=== PATIENT | male | born 1930 | race African-American/Black ===

== ENCOUNTER 2018-05-15 16:25 | Inpatient (IN) | payer MEDICARE, MEDICAID ==
[2018-05-15] MEDS ORDERED: Sodium Chloride 0.9% 1,000 ML IV ONE (16:57)
[2018-05-15 18:09] LABS: % BASOPHILS 0.8 % (0.0-2.0); % EOSINOPHILS 1.4 % (0.0-5.0); % LYMPHOCYTES 18.6 % (20.0-50.0); % MONOCYTES 13.2 % (2.0-10.0); BASOPHILE ABSOLUTE 0.1 Th/cumm (0-0.2); EOSINOPHILE ABSOLUTE 0.1 Th/cmm (0.1-0.4); HEMATOCRIT 34.3 % (41.0-60); HEMOGLOBIN 11.1 gm/dL (12-16); LYMPHOCYTE ABSOLUTE 1.2 Th/cmm (1.5-3.0); MEAN CELL VOLUME 76.8 fl (80-99); MEAN CORPUSCULAR HEMOGLOBIN 24.8 pg (27.0-31.0); MEAN CORPUSCULAR HGB CONC 32.3 pg (28.0-36.0); MEAN PLATELET VOLUME 8.1 fl; MONOCYTE ABSOLUTE 0.9 Th/cmm (0.3-1.0); NEUTROPHILE ABSOLUTE 4.2 Th/cmm (1.8-8.0); PLATELET COUNT 365 Th/cmm (150-400); RED BLOOD COUNT 4.46 Mil/cmm (3.80-5.80); RED CELL DISTRIBUTION WIDTH 16.7 % (11.5-20.0); WHITE BLOOD COUNT 6.5 Th/cmm (4.8-10.8)
[2018-05-15 18:16] LABS: ALB/GLOB RATIO 0.8 (1.0-1.8); ALBUMIN 3.4 gm/dL (4.2-5.5); ALKALINE PHOSPHATASE 154 U/L (34-104); AMYLASE SERUM 79 U/L (29-103); ANION GAP 15.4 (7.0-16.0); BILIRUBIN,TOTAL 0.3 mg/dL (0.3-1.0); BUN - UREA NITROGEN 25 mg/dL (7-25); CALCIUM SERUM 8.9 mg/dL (8.6-10.3); CARBON DIOXIDE 21.7 mEq/L (21.0-31.0); CHLORIDE 102 mEq/L (98-107); CREATININE KINASE 82 U/L (30-223); GLUCOSE 102 mg/dL (70-105); LIPASE 27 U/L (11-82); POTASSIUM SERUM 4.1 mEq/L (3.5-5.1); SGOT 10 U/L (13-39); SGPT/ALT 8 U/L (7-52); SODIUM SERUM 135 mEq/L (136-145); TOTAL PROTEIN,SERUM 7.5 gm/dL (6.0-8.3)
[2018-05-15 18:17] LABS: TROP I 0.01 ng/mL (0.01-0.05)
[2018-05-15 18:21] LABS: INR 1.17 (0.5-1.4); PROTHROMBIN TIME (TEST) 12.1 SECONDS (9.5-11.5)
--- NOTE | 2018-05-15 18:41 | ED Physician Chart ---
ED Chief Complaint/HPI - Patient Information Date Seen:: 05/15/18 Time Seen:: 17:25 Chief Complaint:: Poor Appetite History of Present Illness:: onset x 2 days of poor appetite, weakness, and dizziness; no report of trauma, H /As, neck pain, cough, C/P, SOB, Abd. Pain, N/V/D/C, chills, or urinary s/s Allergies:: Allergies Allergy/AdvReac Type Severity Reaction Status Date / Time No Known Allergies Allergy Verified 05/15/18 17:06 Vitals:: Vital Signs - 8 hr 05/15/18 17:22 Temp 97.9 F HR 64 RR 18 BP 132/71 O2 Sat % 100 Historian:: Patient, EMS Review:: Nurse's Note Reviewed, Old Chart Reviewed, EMS run form Reviewed ED Review of Systems - Review of Systems General/Constitutional: No fever, No chills, No weight loss, Weakness, No diaphoresis, No edema, No loss of appetite Skin: No skin lesions, No rash, No bruising Head: No headache, No light-headedness Eyes: No loss of vision, No pain, No diplopia ENT: No earache, No nasal drainage, No sore throat, No tinnitus Neck: No neck pain, No swelling, No thyromegaly, No stiffness, No mass noted Cardio Vascular: No chest pain, No palpitations, No PND, No orthopnea, No edema Pulmonary: No SOB, No cough, No sputum, No wheezing GI: No nausea, No vomiting, No diarrhea, No pain, No melena, No hematochezia, No constipation, No hematemesis G/U: No dysuria, No frequency, No hematuria, No nacturia Musculoskeletal: No bone or joint pain, No back pain, No muscle pain Endocrine: No polyuria, No polydipsia Psychiatric: No prior psych history, No depression, No anxiety, No suicidal ideation, No homicidal ideation, No auditory hallucination, No visual hallucination Hematopoietic: No bruising, No lymphadenopathy Allergic/Immuno: No urticaria, No angioedema Neurological: No syncope, No focal symptoms, Weakness, No paresthesia, No headache, No seizure, Dizziness, No confusion, Vertigo ED Past Medical History - Past Medical History Obtainable: Yes Past Medical History: HTN, Dyslipidemia Family History: HTN Social History: Non Smoker, No Alcohol, No Drug Use, , Care Facility Surgical History: None Psychiatricy History: None Medication: Reviewed Family Medical History - Family Member Mother History Unknown: Yes ED Physical Exam - Physical Examination General/Constitutional: Awake, Well-developed, well-nourished, Alert, No distress, GCS 15, Non-toxic appearing, Ambulatory Head: Atraumatic Eyes: Lids, conjuctiva normal, PERRL, EOMI Skin: Nl inspection, No rash, No skin lesions, No ecchymosis, Well hydrated, No lymphadenopathy ENMT: External ears, nose nl, TM canals nl, Nasal exam nl, Lips, teeth, gums nl , Oropharynx nl, Tonsils nl Neck: Nontender, Full ROM w/o pain, No JVD, No nuchal rigidity, No bruit, No mass, No stridor Respiratory: Nl effort/Exclusion, Clear to Auscultation, No Wheeze/Rhonchi/Rales Cardio Vascular: No murmur, gallop, rubs, NL S1 S2, Carotid/Femoral/Distal pulses equal bilaterally Other Cardio Vascular comments:: Irregular Irregular Rhythm GI: No tenderness/rebounding/guarding, No organomegaly, No hernia, Normal BS's, Nondistended, No mass/bruits, No McBurney tenderness, Rectum exam nl Other GI comments:: no pulsatile masses : No CVA tenderness Extremities: No tenderness or effusion, Full ROM, normal strength in all extremities, No edema, Normal digits & nails Neuro/Psych: Alert/oriented, DTR's symmetric, Normal sensory exam, Normal motor strength, Judgement/insight normal, Mood normal, Normal gait, No focal deficits Misc: Normal back, No paraspinal tenderness ED Labs/Radiology/EKG Results - Lab Results Results: Laboratory Tests 05/15/18 05/15/18 05/15/18 17:30 17:30 17:30 WBC 6.5 RBC 4.46 Hgb 11.1 L Hct 34.3 L MCV 76.8 L MCH 24.8 L MCHC Differential 32.3 RDW 16.7 Plt Count 365 MPV 8.1 Neutrophils % 66.0 Lymphocytes % 18.6 L Monocytes % 13.2 H Eosinophils % 1.4 Basophils % 0.8 PT 12.1 H INR 1.17 PTT (Actin FS) 28.3 Sodium 135 L Potassium 4.1 Chloride 102 Carbon Dioxide 21.7 Anion Gap 15.4 BUN 25 Creatinine 1.0 Est GFR ( Amer) TNP Est GFR (Non-Af Amer) TNP BUN/Creatinine Ratio 25.0 Glucose 102 Whole Bld Lactic Acid Calcium 8.9 Total Bilirubin 0.3 AST 10 L ALT 8 Alkaline Phosphatase 154 H Creatine Kinase 82 Troponin I Total Protein 7.5 Albumin 3.4 L Globulin 4.1 Albumin/Globulin Ratio 0.8 L Amylase 79 Lipase 27 05/15/18 17:30 WBC RBC Hgb Hct MCV MCH MCHC Differential RDW Plt Count MPV Neutrophils % Lymphocytes % Monocytes % Eosinophils % Basophils % PT INR PTT (Actin FS) Sodium Potassium Chloride Carbon Dioxide Anion Gap BUN Creatinine Est GFR ( Amer) Est GFR (Non-Af Amer) BUN/Creatinine Ratio Glucose Whole Bld Lactic Acid 3.26 H* Calcium Total Bilirubin AST ALT Alkaline Phosphatase Creatine Kinase Troponin I 0.01 Total Protein Albumin Globulin Albumin/Globulin Ratio Amylase Lipase Comments:: Reviewed - Radiology Results Comments:: NAD - EKG Interpretations EKG Time:: 17:40 Rate & Rhythm: 134; Atrial Fibrillation Comments:: non-specific st-t changes ED Septic Shock - . Is Septic Shock (SBP<90, OR Lactate>4 mmol\L) present?: No - <6hrs of presentation: Vital Signs: Vital Signs - 8 hr 05/15/18 17:22 Temp 97.9 F HR 64 RR 18 BP 132/71 O2 Sat % 100 ED Reassessment (Disposition) - Reassessment Reassessment Condition:: Improved - Diagnosis Diagnosis:: Atrial Fibrillation; Cardiac Arrythmias; Tachyarrythmias; Anemia; Dehydration; Lactic Acidosis; Hyponatremia; Hematuria; UTI - Aftercare/Follow up Instructions Aftercare/Follow-Up Instructions:: Counseled pt regarding lab results/diagnosis & need follow up, Counseled pt & family regarding lab results/diagnosis & need follow up - Patient Disposition Discharge/Transfer:: Acute Care w/in this hosp Accepting Physician:: Dr. Martinez Time Called:: 1899 Time Responded:: 19:00 Admitted to:: Telemetry Spoke to:: Dr. Martinez Admitting Medical Physician:: Dr. Martinez Condition at Disposition:: Stable, Improved
[2018-05-15 19:29] LABS: URINE SOURCE MIDSTREAM
[2018-05-15 19:47] LABS: URINE BILIRUBIN NEGATIVE (NEGATIVE); URINE BLOOD LARGE (NEGATIVE); URINE GLUCOSE (UA) NEGATIVE (NEGATIVE); URINE KETONE NEGATIVE (NEGATIVE); URINE LEUKOCYTE ESTERASE MODERATE (NEGATIVE); URINE MICROSCOPIC INDICATED? YES; URINE NITRATE POSITIVE (NEGATIVE); URINE PH 6.5 (4.6 - 8.0); URINE PROTEIN 30 mg/dL (NEGATIVE)
[2018-05-15 19:49] LABS: URINE CLARITY HAZY (CLEAR); URINE COLOR YELLOW
[2018-05-15 19:51] LABS: URINE RBC >100 /hpf (0-5)
[2018-05-15 19:53] LABS: URINE BACTERIA 4+ /hpf (NONE SEEN); URINE EPITHELIAL CELLS FEW /lpf (FEW)
[2018-05-15] MEDS ORDERED: cefTRIAXone 1 GM in Sodium Chloride 0.9% 50 ML IV ONE (19:58)
[2018-05-15] MEDS ORDERED: Non-Formulary Item 1 EA (Omeprazole [Omeprazole] 40 MG) PO SCH (23:30)
[2018-05-16 00:10] VITALS: BP 148/88
--- NOTE | 2018-05-16 08:33 | Diagnostic Imaging Report ---
Portable chest x-ray HISTORY: Pain The heart appears enlarged. Atherosclerotic calcination seen in the aorta. No acute focal prominent processes. IMPRESSION: 1. No acute focal pulmonary processes 2. Cardiomegaly with atherosclerotic vascular changes
[2018-05-16] MEDS: Multivitamin w/ Minerals Tab PO SCH (08:55)
[2018-05-16] MEDS: cefTRIAXone 1 GM in Sodium Chloride 0.9% 50 ML IV SCH (20:03)
[2018-05-17 06:10] LABS: % BASOPHILS 0.7 % (0.0-2.0); % EOSINOPHILS 1.9 % (0.0-5.0); % LYMPHOCYTES 21.9 % (20.0-50.0); % MONOCYTES 9.7 % (2.0-10.0); % NEUTROPHILS 65.8 % (40.0-80.0); EOSINOPHILE ABSOLUTE 0.1 Th/cmm (0.1-0.4); HEMATOCRIT 33.3 % (41.0-60); HEMOGLOBIN 10.7 gm/dL (12-16); LYMPHOCYTE ABSOLUTE 1.3 Th/cmm (1.5-3.0); MEAN CELL VOLUME 76.1 fl (80-99); MEAN CORPUSCULAR HEMOGLOBIN 24.3 pg (27.0-31.0); MEAN PLATELET VOLUME 8.4 fl; MONOCYTE ABSOLUTE 0.6 Th/cmm (0.3-1.0); NEUTROPHILE ABSOLUTE 4.1 Th/cmm (1.8-8.0); PLATELET COUNT 404 Th/cmm (150-400); RED BLOOD COUNT 4.38 Mil/cmm (3.80-5.80); RED CELL DISTRIBUTION WIDTH 17.5 % (11.5-20.0); WHITE BLOOD COUNT 6.1 Th/cmm (4.8-10.8)
[2018-05-17 06:59] LABS: ALB/GLOB RATIO 0.9 (1.0-1.8); ALBUMIN 3.3 gm/dL (4.2-5.5); ALKALINE PHOSPHATASE 139 U/L (34-104); ANION GAP 12.6 (7.0-16.0); BILIRUBIN,TOTAL 0.3 mg/dL (0.3-1.0); BUN - UREA NITROGEN 25 mg/dL (7-25); CALCIUM SERUM 8.8 mg/dL (8.6-10.3); CARBON DIOXIDE 24.4 mEq/L (21.0-31.0); CHLORIDE 107 mEq/L (98-107); CREATININE - SERUM 1.2 mg/dL (0.7-1.3); GLUCOSE 82 mg/dL (70-105); SGOT 9 U/L (13-39); SGPT/ALT 7 U/L (7-52); SODIUM SERUM 140 mEq/L (136-145); TOTAL PROTEIN,SERUM 6.9 gm/dL (6.0-8.3)
[2018-05-17] MEDS: Multivitamin w/ Minerals Tab PO SCH (08:55)
[2018-05-17] MEDS ORDERED: Probiotic Screen MC PRN (12:14)
--- NOTE | 2018-05-17 19:28 | History & Physical ---
ADMIT DATE: 05/16/2018 CHIEF COMPLAINT: Increasing confusions and lethargy. HISTORY OF PRESENT ILLNESS: An 87-year-old male with underlying history of dementia, dysphagia, congestive heart failure, hypertension, BPH, who lives at retirement facility, was brought to the Emergency Department for evaluation of increasing confusion, lethargic. The patient was diagnosed with complicated UTI system without treatment. PAST MEDICAL HISTORY: As per HPI. PAST SURGICAL HISTORY: No significant past surgical history. SOCIAL HISTORY: Lives at retirement facility. CURRENT MEDICATIONS: Per medication reconciliation. ALLERGIES: No known drug allergies. REVIEW OF SYSTEMS: No reported fever, no chills, no diarrhea, no vomiting, no breathing issues. No chest pain, no abdominal pain. No bloody stool or bloody urine reported. PHYSICAL EXAMINATION: VITAL SIGNS: Temperature 96.7, pulse 73, respiration 20, blood pressure 140/90, oxygen is 96% on room air. HEENT: Unremarkable. HEART: S1, S2 normal. LUNGS: Clear to auscultation bilaterally. ABDOMEN: Soft, nontender. NEURO EXAM: Awake, confused. EXTREMITIES: No edema. AVAILABLE LABORATORY DATA: Has been reviewed. ASSESSMENT: 1. Complicated urinary tract infection. 2. Hypertension. 3. Dysphagia. 4. Dementia. 5. Heart failure, chronic. PLAN: The patient admitted to tele unit. The patient was started on IV antibiotics. Blood culture and urine culture obtained. Home medication reconciled, continue. Family was updated on the patient's condition. Plan of care with the nursing staff. We will follow final cultures. [facility]# [id number]
[2018-05-17] MEDS: cefTRIAXone 1 GM in Sodium Chloride 0.9% 50 ML IV SCH (20:51)
--- NOTE | 2018-05-17 23:02 | General Progress Note ---
Subjective - Review of Systems Service Date: 05/17/18 Subjective: Patient doing ok no new concern reported Objective - Results Result Diagrams: 05/17/18 05:47 05/17/18 05:47 Recent Labs: Laboratory Last Values WBC 6.1 Th/cmm (4.8-10.8) 05/17/18 05:47 RBC 4.38 Mil/cmm (3.80-5.80) 05/17/18 05:47 Hgb 10.7 gm/dL (12-16) L 05/17/18 05:47 Hct 33.3 % (41.0-60) L 05/17/18 05:47 MCV 76.1 fl (80-99) L 05/17/18 05:47 MCH 24.3 pg (27.0-31.0) L 05/17/18 05:47 MCHC Differential 32.0 pg (28.0-36.0) 05/17/18 05:47 RDW 17.5 % (11.5-20.0) 05/17/18 05:47 Plt Count 404 Th/cmm (150-400) H 05/17/18 05:47 MPV 8.4 fl 05/17/18 05:47 Neutrophils % 65.8 % (40.0-80.0) 05/17/18 05:47 Lymphocytes % 21.9 % (20.0-50.0) 05/17/18 05:47 Monocytes % 9.7 % (2.0-10.0) 05/17/18 05:47 Eosinophils % 1.9 % (0.0-5.0) 05/17/18 05:47 Basophils % 0.7 % (0.0-2.0) 05/17/18 05:47 PT 12.1 SECONDS (9.5-11.5) H 05/15/18 17:30 INR 1.17 (0.5-1.4) 05/15/18 17:30 PTT (Actin FS) 28.3 SECONDS (26.0-38.0) 05/15/18 17:30 Sodium 140 mEq/L (136-145) 05/17/18 05:47 Potassium 4.0 mEq/L (3.5-5.1) 05/17/18 05:47 Chloride 107 mEq/L (98-107) 05/17/18 05:47 Carbon Dioxide 24.4 mEq/L (21.0-31.0) 05/17/18 05:47 Anion Gap 12.6 (7.0-16.0) 05/17/18 05:47 BUN 25 mg/dL (7-25) 05/17/18 05:47 Creatinine 1.2 mg/dL (0.7-1.3) 05/17/18 05:47 Est GFR ( Amer) TNP 05/17/18 05:47 Est GFR (Non-Af Amer) TNP 05/17/18 05:47 BUN/Creatinine Ratio 20.8 05/17/18 05:47 Glucose 82 mg/dL (70-105) 05/17/18 05:47 Whole Bld Lactic Acid 0.79 mmol/L (0.60-1.99) 05/15/18 20:30 Calcium 8.8 mg/dL (8.6-10.3) 05/17/18 05:47 Total Bilirubin 0.3 mg/dL (0.3-1.0) 05/17/18 05:47 AST 9 U/L (13-39) L 05/17/18 05:47 ALT 7 U/L (7-52) 05/17/18 05:47 Alkaline Phosphatase 139 U/L (34-104) H 05/17/18 05:47 Creatine Kinase 82 U/L (30-223) 05/15/18 17:30 Troponin I 0.01 ng/mL (0.01-0.05) 05/15/18 17:30 Total Protein 6.9 gm/dL (6.0-8.3) 05/17/18 05:47 Albumin 3.3 gm/dL (4.2-5.5) L 05/17/18 05:47 Globulin 3.6 gm/dL 05/17/18 05:47 Albumin/Globulin Ratio 0.9 (1.0-1.8) L 05/17/18 05:47 Amylase 79 U/L (29-103) 05/15/18 17:30 Lipase 27 U/L (11-82) 05/15/18 17:30 Urine Source MIDSTREAM 05/15/18 19:00 Urine Color YELLOW 05/15/18 19:00 Urine Clarity HAZY (CLEAR) 05/15/18 19:00 Urine pH 6.5 (4.6 - 8.0) 05/15/18 19:00 Ur Specific [place] 1.020 (1.005-1.030) 05/15/18 19:00 Urine Protein 30 mg/dL (NEGATIVE) H 05/15/18 19:00 Urine Glucose (UA) NEGATIVE mg/dL (NEGATIVE) 05/15/18 19:00 Urine Ketones NEGATIVE mg/dL (NEGATIVE) 05/15/18 19:00 Urine Blood LARGE (NEGATIVE) H 05/15/18 19:00 Urine Nitrate POSITIVE (NEGATIVE) H 05/15/18 19:00 Urine Bilirubin NEGATIVE (NEGATIVE) 05/15/18 19:00 Urine Urobilinogen 1.0 E.U./dL (0.2 - 1.0) 05/15/18 19:00 Ur Leukocyte Esterase MODERATE (NEGATIVE) H 05/15/18 19:00 Urine RBC >100 /hpf (0-5) H 05/15/18 19:00 Urine WBC 10-25 /hpf (0-5) H 05/15/18 19:00 Ur Epithelial Cells FEW /lpf (FEW) 05/15/18 19:00 Urine Bacteria 4+ /hpf (NONE SEEN) H 05/15/18 19:00 - Physical Exam Vitals and I&O: Vital Signs Temp 97.8 F 05/17/18 20:00 Pulse 71 05/17/18 20:00 Resp 16 05/17/18 22:30 BP 158/82 05/17/18 20:00 Pulse Ox 93 05/17/18 20:00 Intake & Output 05/17/18 05/17/18 05/18/18 06:59 18:59 06:59 Intake Total 80 500 Balance 80 500 Weight (lbs) 79.016 kg 79.379 kg Intake: Intake, IV Amount 50 [id number] 1 gm In 50 Sodium Chloride 0.9% 50 ml @ 100 mls/hr IV Q24HR [facility] Rx#:[id number] Oral 30 500 Other: # Voids 2 2 # Bowel Movements 1 1 Weight Source Bedscale Bedscale Active Medications: Current Medications Acetaminophen (Tylenol) 650 mg PO Q4HR PRN PRN Reason: Pain Or Fever >100.4 Stop: 07/14/18 23:19 Amlodipine Besylate (Norvasc) 10 mg PO DAILY [facility] Stop: 07/15/18 08:59 Last Admin: 05/17/18 08:54 Dose: 10 mg Brimonidine Tartrate (Alphagan 0.15% Ophth Soln) 1 drop EACH EYE BID JAHAIRA Stop: 07/14/18 23:29 Last Admin: 05/17/18 19:00 Dose: Not Given Ceftriaxone Sodium 1 gm/ (Sodium Chloride) 50 mls @ 100 mls/hr IV Q24HR JAHAIRA Stop: 07/15/18 20:59 Last Admin: 05/17/18 20:51 Dose: 100 mls/hr Lactobacillus Rhamnosus (Culturelle 15b) 1 each PO DAILY JAHAIRA Stop: 07/17/18 08:59 Metoprolol Succinate (Toprol Xl) 25 mg PO DAILY [facility] Stop: 07/15/18 08:59 Last Admin: 05/17/18 08:55 Dose: 25 mg Miscellaneous (Probiotic Screen) 1 ea MC PRN PRN PRN Reason: PROTOCOL Stop: 07/16/18 12:13 Promethazine HCl (Phenergan) 12.5 mg PO Q4H PRN PRN Reason: Cough Stop: 07/14/18 23:19 Tamsulosin HCl (Flomax) 0.4 mg PO HS JAHAIRA Stop: 07/15/18 20:59 Last Admin: 05/17/18 21:04 Dose: 0.4 mg Cardiovascular: Regular rate Lungs: Clear to auscultation Assessment/Plan - Assessment Assessment: UTI CHF AFIB HTN DEMENTIA DYSPHAGIA - Plan Plan: Continue Rocephine Cardiac status stable Dysphagia diet Follow final culture Nutritional Asmnt/Malnutr-PDOC - Dietary Evaluation Malnutrition Findings (Please click <Entered> for more info): Nutritional Asmnt/Malnutrition Start: 05/16/18 16: 16 Text: Status: Complete Freq: Protocol: Document 05/16/18 16:16 [email or web address] (Rec: 05/16/18 16:30 [email or web address]) Nutritional Asmnt/Malnutrition Patient General Information Nutritional Screening High Risk Consult Diagnosis sepsis, UTI Pertinent Medical Hx/Surgical Hx HTN, dyslipidemia Subjective Information Consult received for charlee 11 , sacral wound. Pt seen sleeping in bed at time of visit. RN stated pt is a feeder, consumed 50% of breakfast and lunch today. Current Diet Order/ Nutrition Support pureed Pertinent Medications reviewed Pertinent Labs 05/15 Na 135, glucose 102, alb 3.4 Nutritional Hx/Data Height 1.7 m Height (Calculated Centimeters) 170.2 Current Weight (lbs) 77.111 kg Weight (Calculated Kilograms) 77.1 Weight (Calculated Grams) 77580.7 [place] Body Weight 148 Body Mass Index (BMI) 26.6 Weight Status Overweight GI Symptoms GI Symptoms None Last BM not indicated Difficult in: None Skin Integrity/Comment: brakon skin to left sacral per wound care note Current %PO Fair (50-74%) Estimated Nutritional Goals BEE in Kcals: Using Current wt Calories/Kcals/Kg 27-32 Kcals Calculated 8038-4615 Protein: Using Current wt Protein g/k-1.2 Protein Calculated 77-92 Fluid: ml 2079-2464ml (1ml/kcal) Nutritional Problem 1. Problem Problem increased nutrition needs Etiology increased metabilic demand for wound healing Signs/Symptoms: broken skin on left sacral Malnutrition Alert Is there a minimum of two criteria No selected? Query Text:Check all the applicable criteria. A minimum of two criteria are recommended for diagnosis of either severe or non-severe malnutrition. Malnutrition Related to Morbid Obesity Malnutrition related to morbid obesity No Intervention/Recommendation Comments 1. Continue with pureed diet as ordered. Assist pt with all meals. Consider adding nutrition supplement if PO continue <=50%. 2. Monitor PO intake, wt, labs and skin integrity 3. F/U as high risk in 2-3 day Expected Outcomes/Goals Expected Outcomes/Goals 1. PO intake to meet at least 75% of nutritional needs. 2. Wt stability, skin integrity to improve, labs to approach WNL.
[2018-05-18] MEDS: Multivitamin w/ Minerals Tab PO SCH (09:28)
[2018-05-18] MEDS: Lactobacillus Rhamnosus GG 15 Billion CFU CAP.SPRINK PO SCH (09:28)
[2018-05-18] MEDS: cefTRIAXone 1 GM in Sodium Chloride 0.9% 50 ML IV SCH (21:29)
[2018-05-19] MEDS: Lactobacillus Rhamnosus GG 15 Billion CFU CAP.SPRINK PO SCH (09:09)
[2018-05-19] MEDS: Multivitamin w/ Minerals Tab PO SCH (09:10)
--- NOTE | 2018-05-19 16:18 | General Progress Note ---
Subjective - Review of Systems Service Date: 05/18/18 Subjective: Late entry: Patient doing ok no new concern reported Objective - Results Result Diagrams: 05/17/18 05:47 05/17/18 05:47 Recent Labs: Laboratory Last Values WBC 6.1 Th/cmm (4.8-10.8) 05/17/18 05:47 RBC 4.38 Mil/cmm (3.80-5.80) 05/17/18 05:47 Hgb 10.7 gm/dL (12-16) L 05/17/18 05:47 Hct 33.3 % (41.0-60) L 05/17/18 05:47 MCV 76.1 fl (80-99) L 05/17/18 05:47 MCH 24.3 pg (27.0-31.0) L 05/17/18 05:47 MCHC Differential 32.0 pg (28.0-36.0) 05/17/18 05:47 RDW 17.5 % (11.5-20.0) 05/17/18 05:47 Plt Count 404 Th/cmm (150-400) H 05/17/18 05:47 MPV 8.4 fl 05/17/18 05:47 Neutrophils % 65.8 % (40.0-80.0) 05/17/18 05:47 Lymphocytes % 21.9 % (20.0-50.0) 05/17/18 05:47 Monocytes % 9.7 % (2.0-10.0) 05/17/18 05:47 Eosinophils % 1.9 % (0.0-5.0) 05/17/18 05:47 Basophils % 0.7 % (0.0-2.0) 05/17/18 05:47 PT 12.1 SECONDS (9.5-11.5) H 05/15/18 17:30 INR 1.17 (0.5-1.4) 05/15/18 17:30 PTT (Actin FS) 28.3 SECONDS (26.0-38.0) 05/15/18 17:30 Sodium 140 mEq/L (136-145) 05/17/18 05:47 Potassium 4.0 mEq/L (3.5-5.1) 05/17/18 05:47 Chloride 107 mEq/L (98-107) 05/17/18 05:47 Carbon Dioxide 24.4 mEq/L (21.0-31.0) 05/17/18 05:47 Anion Gap 12.6 (7.0-16.0) 05/17/18 05:47 BUN 25 mg/dL (7-25) 05/17/18 05:47 Creatinine 1.2 mg/dL (0.7-1.3) 05/17/18 05:47 Est GFR ( Amer) TNP 05/17/18 05:47 Est GFR (Non-Af Amer) TNP 05/17/18 05:47 BUN/Creatinine Ratio 20.8 05/17/18 05:47 Glucose 82 mg/dL (70-105) 05/17/18 05:47 Whole Bld Lactic Acid 0.79 mmol/L (0.60-1.99) 05/15/18 20:30 Calcium 8.8 mg/dL (8.6-10.3) 05/17/18 05:47 Total Bilirubin 0.3 mg/dL (0.3-1.0) 05/17/18 05:47 AST 9 U/L (13-39) L 05/17/18 05:47 ALT 7 U/L (7-52) 05/17/18 05:47 Alkaline Phosphatase 139 U/L (34-104) H 05/17/18 05:47 Creatine Kinase 82 U/L (30-223) 05/15/18 17:30 Troponin I 0.01 ng/mL (0.01-0.05) 05/15/18 17:30 Total Protein 6.9 gm/dL (6.0-8.3) 05/17/18 05:47 Albumin 3.3 gm/dL (4.2-5.5) L 05/17/18 05:47 Globulin 3.6 gm/dL 05/17/18 05:47 Albumin/Globulin Ratio 0.9 (1.0-1.8) L 05/17/18 05:47 Amylase 79 U/L (29-103) 05/15/18 17:30 Lipase 27 U/L (11-82) 05/15/18 17:30 Urine Source MIDSTREAM 05/15/18 19:00 Urine Color YELLOW 05/15/18 19:00 Urine Clarity HAZY (CLEAR) 05/15/18 19:00 Urine pH 6.5 (4.6 - 8.0) 05/15/18 19:00 Ur Specific [place] 1.020 (1.005-1.030) 05/15/18 19:00 Urine Protein 30 mg/dL (NEGATIVE) H 05/15/18 19:00 Urine Glucose (UA) NEGATIVE mg/dL (NEGATIVE) 05/15/18 19:00 Urine Ketones NEGATIVE mg/dL (NEGATIVE) 05/15/18 19:00 Urine Blood LARGE (NEGATIVE) H 05/15/18 19:00 Urine Nitrate POSITIVE (NEGATIVE) H 05/15/18 19:00 Urine Bilirubin NEGATIVE (NEGATIVE) 05/15/18 19:00 Urine Urobilinogen 1.0 E.U./dL (0.2 - 1.0) 05/15/18 19:00 Ur Leukocyte Esterase MODERATE (NEGATIVE) H 05/15/18 19:00 Urine RBC >100 /hpf (0-5) H 05/15/18 19:00 Urine WBC 10-25 /hpf (0-5) H 05/15/18 19:00 Ur Epithelial Cells FEW /lpf (FEW) 05/15/18 19:00 Urine Bacteria 4+ /hpf (NONE SEEN) H 05/15/18 19:00 - Physical Exam Vitals and I&O: Vital Signs Temp 97.1 F 05/19/18 16:08 Pulse 83 05/19/18 16:08 Resp 18 05/19/18 16:08 BP 118/86 05/19/18 16:08 Pulse Ox 98 05/19/18 16:08 Intake & Output 05/18/18 05/19/18 05/19/18 18:59 06:59 18:59 Intake Total 700 100 Balance 700 100 Weight (lbs) 92.85 kg 94.347 kg Intake: Oral 700 100 Other: # Voids 5 3 # Bowel Movements 0 1 Weight Source Bedscale Bedscale Active Medications: Current Medications Acetaminophen (Tylenol) 650 mg PO Q4HR PRN PRN Reason: Pain Or Fever >100.4 Stop: 07/14/18 23:19 Amlodipine Besylate (Norvasc) 10 mg PO DAILY JAHAIRA Stop: 07/15/18 08:59 Last Admin: 05/19/18 09:10 Dose: 10 mg Brimonidine Tartrate (Alphagan 0.15% Ophth Soln) 1 drop EACH EYE BID JAHAIRA Stop: 07/14/18 23:29 Last Admin: 05/19/18 09:12 Dose: 1 drop Ceftriaxone Sodium 1 gm/ (Sodium Chloride) 50 mls @ 100 mls/hr IV Q24HR JAHAIRA Stop: 07/15/18 20:59 Last Admin: 05/18/18 21:29 Dose: 100 mls/hr Lactobacillus Rhamnosus (Culturelle 15b) 1 each PO DAILY JAHAIRA Stop: 07/17/18 08:59 Last Admin: 05/19/18 09:09 Dose: 1 each Metoprolol Succinate (Toprol Xl) 25 mg PO DAILY JAHAIRA Stop: 07/15/18 08:59 Last Admin: 05/19/18 09:10 Dose: 25 mg Miscellaneous (Probiotic Screen) 1 ea MC PRN PRN PRN Reason: PROTOCOL Stop: 07/16/18 12:13 Promethazine HCl (Phenergan) 12.5 mg PO Q4H PRN PRN Reason: Cough Stop: 07/14/18 23:19 Last Admin: 05/18/18 21:28 Dose: 12.5 mg Tamsulosin HCl (Flomax) 0.4 mg PO HS JAHAIRA Stop: 07/15/18 20:59 Last Admin: 05/18/18 21:30 Dose: 0.4 mg Cardiovascular: Regular rate Lungs: Clear to auscultation Assessment/Plan - Assessment Assessment: UTI CHF AFIB HTN DEMENTIA DYSPHAGIA - Plan Plan: Continue Rocephine Cardiac status stable Dysphagia diet Follow final culture Nutritional Asmnt/Malnutr-PDOC - Dietary Evaluation Malnutrition Findings (Please click <Entered> for more info): Nutritional Asmnt/Malnutrition Start: 05/16/18 16: 16 Text: Status: Complete Freq: Protocol: Document 05/16/18 16:16 [email or web address] (Rec: 05/16/18 16:30 [email or web address]) Nutritional Asmnt/Malnutrition Patient General Information Nutritional Screening High Risk Consult Diagnosis sepsis, UTI Pertinent Medical Hx/Surgical Hx HTN, dyslipidemia Subjective Information Consult received for charlee 11 , sacral wound. Pt seen sleeping in bed at time of visit. RN stated pt is a feeder, consumed 50% of breakfast and lunch today. Current Diet Order/ Nutrition Support pureed Pertinent Medications reviewed Pertinent Labs 05/15 Na 135, glucose 102, alb 3.4 Nutritional Hx/Data Height 1.7 m Height (Calculated Centimeters) 170.2 Current Weight (lbs) 77.111 kg Weight (Calculated Kilograms) 77.1 Weight (Calculated Grams) 45950.7 [place] Body Weight 148 Body Mass Index (BMI) 26.6 Weight Status Overweight GI Symptoms GI Symptoms None Last BM not indicated Difficult in: None Skin Integrity/Comment: brakon skin to left sacral per wound care note Current %PO Fair (50-74%) Estimated Nutritional Goals BEE in Kcals: Using Current wt Calories/Kcals/Kg 27-32 Kcals Calculated 1340-3647 Protein: Using Current wt Protein g/k-1.2 Protein Calculated 77-92 Fluid: ml 2079-2464ml (1ml/kcal) Nutritional Problem 1. Problem Problem increased nutrition needs Etiology increased metabilic demand for wound healing Signs/Symptoms: broken skin on left sacral Malnutrition Alert Is there a minimum of two criteria No selected? Query Text:Check all the applicable criteria. A minimum of two criteria are recommended for diagnosis of either severe or non-severe malnutrition. Malnutrition Related to Morbid Obesity Malnutrition related to morbid obesity No Intervention/Recommendation Comments 1. Continue with pureed diet as ordered. Assist pt with all meals. Consider adding nutrition supplement if PO continue <=50%. 2. Monitor PO intake, wt, labs and skin integrity 3. F/U as high risk in 2-3 day Expected Outcomes/Goals Expected Outcomes/Goals 1. PO intake to meet at least 75% of nutritional needs. 2. Wt stability, skin integrity to improve, labs to approach WNL.
--- NOTE | 2018-05-19 16:22 | General Progress Note ---
Subjective - Review of Systems Service Date: 05/19/18 Subjective: Patient seen and examined blood culture positive for staph Objective - Results Result Diagrams: 05/17/18 05:47 05/17/18 05:47 Recent Labs: Laboratory Last Values WBC 6.1 Th/cmm (4.8-10.8) 05/17/18 05:47 RBC 4.38 Mil/cmm (3.80-5.80) 05/17/18 05:47 Hgb 10.7 gm/dL (12-16) L 05/17/18 05:47 Hct 33.3 % (41.0-60) L 05/17/18 05:47 MCV 76.1 fl (80-99) L 05/17/18 05:47 MCH 24.3 pg (27.0-31.0) L 05/17/18 05:47 MCHC Differential 32.0 pg (28.0-36.0) 05/17/18 05:47 RDW 17.5 % (11.5-20.0) 05/17/18 05:47 Plt Count 404 Th/cmm (150-400) H 05/17/18 05:47 MPV 8.4 fl 05/17/18 05:47 Neutrophils % 65.8 % (40.0-80.0) 05/17/18 05:47 Lymphocytes % 21.9 % (20.0-50.0) 05/17/18 05:47 Monocytes % 9.7 % (2.0-10.0) 05/17/18 05:47 Eosinophils % 1.9 % (0.0-5.0) 05/17/18 05:47 Basophils % 0.7 % (0.0-2.0) 05/17/18 05:47 PT 12.1 SECONDS (9.5-11.5) H 05/15/18 17:30 INR 1.17 (0.5-1.4) 05/15/18 17:30 PTT (Actin FS) 28.3 SECONDS (26.0-38.0) 05/15/18 17:30 Sodium 140 mEq/L (136-145) 05/17/18 05:47 Potassium 4.0 mEq/L (3.5-5.1) 05/17/18 05:47 Chloride 107 mEq/L (98-107) 05/17/18 05:47 Carbon Dioxide 24.4 mEq/L (21.0-31.0) 05/17/18 05:47 Anion Gap 12.6 (7.0-16.0) 05/17/18 05:47 BUN 25 mg/dL (7-25) 05/17/18 05:47 Creatinine 1.2 mg/dL (0.7-1.3) 05/17/18 05:47 Est GFR ( Amer) TNP 05/17/18 05:47 Est GFR (Non-Af Amer) TNP 05/17/18 05:47 BUN/Creatinine Ratio 20.8 05/17/18 05:47 Glucose 82 mg/dL (70-105) 05/17/18 05:47 Whole Bld Lactic Acid 0.79 mmol/L (0.60-1.99) 05/15/18 20:30 Calcium 8.8 mg/dL (8.6-10.3) 05/17/18 05:47 Total Bilirubin 0.3 mg/dL (0.3-1.0) 05/17/18 05:47 AST 9 U/L (13-39) L 05/17/18 05:47 ALT 7 U/L (7-52) 05/17/18 05:47 Alkaline Phosphatase 139 U/L (34-104) H 05/17/18 05:47 Creatine Kinase 82 U/L (30-223) 05/15/18 17:30 Troponin I 0.01 ng/mL (0.01-0.05) 05/15/18 17:30 Total Protein 6.9 gm/dL (6.0-8.3) 05/17/18 05:47 Albumin 3.3 gm/dL (4.2-5.5) L 05/17/18 05:47 Globulin 3.6 gm/dL 05/17/18 05:47 Albumin/Globulin Ratio 0.9 (1.0-1.8) L 05/17/18 05:47 Amylase 79 U/L (29-103) 05/15/18 17:30 Lipase 27 U/L (11-82) 05/15/18 17:30 Urine Source MIDSTREAM 05/15/18 19:00 Urine Color YELLOW 05/15/18 19:00 Urine Clarity HAZY (CLEAR) 05/15/18 19:00 Urine pH 6.5 (4.6 - 8.0) 05/15/18 19:00 Ur Specific [place] 1.020 (1.005-1.030) 05/15/18 19:00 Urine Protein 30 mg/dL (NEGATIVE) H 05/15/18 19:00 Urine Glucose (UA) NEGATIVE mg/dL (NEGATIVE) 05/15/18 19:00 Urine Ketones NEGATIVE mg/dL (NEGATIVE) 05/15/18 19:00 Urine Blood LARGE (NEGATIVE) H 05/15/18 19:00 Urine Nitrate POSITIVE (NEGATIVE) H 05/15/18 19:00 Urine Bilirubin NEGATIVE (NEGATIVE) 05/15/18 19:00 Urine Urobilinogen 1.0 E.U./dL (0.2 - 1.0) 05/15/18 19:00 Ur Leukocyte Esterase MODERATE (NEGATIVE) H 05/15/18 19:00 Urine RBC >100 /hpf (0-5) H 05/15/18 19:00 Urine WBC 10-25 /hpf (0-5) H 05/15/18 19:00 Ur Epithelial Cells FEW /lpf (FEW) 05/15/18 19:00 Urine Bacteria 4+ /hpf (NONE SEEN) H 05/15/18 19:00 - Physical Exam Vitals and I&O: Vital Signs Temp 97.1 F 05/19/18 16:08 Pulse 83 05/19/18 16:08 Resp 18 05/19/18 16:08 BP 118/86 05/19/18 16:08 Pulse Ox 98 05/19/18 16:08 Intake & Output 05/18/18 05/19/18 05/19/18 18:59 06:59 18:59 Intake Total 700 100 Balance 700 100 Weight (lbs) 92.85 kg 94.347 kg Intake: Oral 700 100 Other: # Voids 5 3 # Bowel Movements 0 1 Weight Source Bedscale Bedscale Active Medications: Current Medications Acetaminophen (Tylenol) 650 mg PO Q4HR PRN PRN Reason: Pain Or Fever >100.4 Stop: 07/14/18 23:19 Amlodipine Besylate (Norvasc) 10 mg PO DAILY JAHAIRA Stop: 07/15/18 08:59 Last Admin: 05/19/18 09:10 Dose: 10 mg Brimonidine Tartrate (Alphagan 0.15% Ophth Soln) 1 drop EACH EYE BID JAHAIRA Stop: 07/14/18 23:29 Last Admin: 05/19/18 09:12 Dose: 1 drop Ceftriaxone Sodium 1 gm/ (Sodium Chloride) 50 mls @ 100 mls/hr IV Q24HR JAHAIRA Stop: 07/15/18 20:59 Last Admin: 05/18/18 21:29 Dose: 100 mls/hr Lactobacillus Rhamnosus (Culturelle 15b) 1 each PO DAILY JAHAIRA Stop: 07/17/18 08:59 Last Admin: 05/19/18 09:09 Dose: 1 each Metoprolol Succinate (Toprol Xl) 25 mg PO DAILY JAHAIRA Stop: 07/15/18 08:59 Last Admin: 05/19/18 09:10 Dose: 25 mg Miscellaneous (Probiotic Screen) 1 ea MC PRN PRN PRN Reason: PROTOCOL Stop: 07/16/18 12:13 Promethazine HCl (Phenergan) 12.5 mg PO Q4H PRN PRN Reason: Cough Stop: 07/14/18 23:19 Last Admin: 05/18/18 21:28 Dose: 12.5 mg Tamsulosin HCl (Flomax) 0.4 mg PO HS JAHAIRA Stop: 07/15/18 20:59 Last Admin: 05/18/18 21:30 Dose: 0.4 mg Cardiovascular: Regular rate Lungs: Clear to auscultation Abdomen: Soft, no Tender Assessment/Plan - Assessment Assessment: UTI Staph bacteremia CHF AFIB HTN DEMENTIA DYSPHAGIA - Plan Plan: ID consult Repeat blood culture Continue Rocephin Cardiac status stable Dysphagia diet Follow repeat blood culture Plan of care discussed with nursing staff Nutritional Asmnt/Malnutr-PDOC - Dietary Evaluation Malnutrition Findings (Please click <Entered> for more info): Nutritional Asmnt/Malnutrition Start: 05/16/18 16: 16 Text: Status: Complete Freq: Protocol: Document 05/16/18 16:16 LCHENG (Rec: 05/16/18 16:30 [email or web address] [email or web address]) Nutritional Asmnt/Malnutrition Patient General Information Nutritional Screening High Risk Consult Diagnosis sepsis, UTI Pertinent Medical Hx/Surgical Hx HTN, dyslipidemia Subjective Information Consult received for charlee 11 , sacral wound. Pt seen sleeping in bed at time of visit. RN stated pt is a feeder, consumed 50% of breakfast and lunch today. Current Diet Order/ Nutrition Support pureed Pertinent Medications reviewed Pertinent Labs 05/15 Na 135, glucose 102, alb 3.4 Nutritional Hx/Data Height 1.7 m Height (Calculated Centimeters) 170.2 Current Weight (lbs) 77.111 kg Weight (Calculated Kilograms) 77.1 Weight (Calculated Grams) 48200.7 [place] Body Weight 148 Body Mass Index (BMI) 26.6 Weight Status Overweight GI Symptoms GI Symptoms None Last BM not indicated Difficult in: None Skin Integrity/Comment: brakon skin to left sacral per wound care note Current %PO Fair (50-74%) Estimated Nutritional Goals BEE in Kcals: Using Current wt Calories/Kcals/Kg 27-32 Kcals Calculated 9376-3267 Protein: Using Current wt Protein g/k-1.2 Protein Calculated 77-92 Fluid: ml 2078-2464ml (1ml/kcal) Nutritional Problem 1. Problem Problem increased nutrition needs Etiology increased metabilic demand for wound healing Signs/Symptoms: broken skin on left sacral Malnutrition Alert Is there a minimum of two criteria No selected? Query Text:Check all the applicable criteria. A minimum of two criteria are recommended for diagnosis of either severe or non-severe malnutrition. Malnutrition Related to Morbid Obesity Malnutrition related to morbid obesity No Intervention/Recommendation Comments 1. Continue with pureed diet as ordered. Assist pt with all meals. Consider adding nutrition supplement if PO continue <=50%. 2. Monitor PO intake, wt, labs and skin integrity 3. F/U as high risk in 2-3 day Expected Outcomes/Goals Expected Outcomes/Goals 1. PO intake to meet at least 75% of nutritional needs. 2. Wt stability, skin integrity to improve, labs to approach WNL.
[2018-05-19] MEDS: cefTRIAXone 1 GM in Sodium Chloride 0.9% 50 ML IV SCH (21:07)
[2018-05-20 06:01] LABS: % BASOPHILS 0.2 % (0.0-2.0); % EOSINOPHILS 2.3 % (0.0-5.0); % LYMPHOCYTES 24.6 % (20.0-50.0); % MONOCYTES 10.4 % (2.0-10.0); % NEUTROPHILS 62.5 % (40.0-80.0); EOSINOPHILE ABSOLUTE 0.1 Th/cmm (0.1-0.4); HEMATOCRIT 32.9 % (41.0-60); HEMOGLOBIN 10.5 gm/dL (12-16); LYMPHOCYTE ABSOLUTE 1.4 Th/cmm (1.5-3.0); MEAN CELL VOLUME 76.8 fl (80-99); MEAN CORPUSCULAR HEMOGLOBIN 24.5 pg (27.0-31.0); MEAN PLATELET VOLUME 7.8 fl; MONOCYTE ABSOLUTE 0.6 Th/cmm (0.3-1.0); NEUTROPHILE ABSOLUTE 3.5 Th/cmm (1.8-8.0); PLATELET COUNT 357 Th/cmm (150-400); RED BLOOD COUNT 4.28 Mil/cmm (3.80-5.80); RED CELL DISTRIBUTION WIDTH 16.7 % (11.5-20.0); WHITE BLOOD COUNT 5.6 Th/cmm (4.8-10.8)
[2018-05-20 07:03] LABS: ANION GAP 11.3 (7.0-16.0); BUN - UREA NITROGEN 28 mg/dL (7-25); CALCIUM SERUM 9.1 mg/dL (8.6-10.3); CARBON DIOXIDE 25.7 mEq/L (21.0-31.0); CHLORIDE 104 mEq/L (98-107); CREATININE - SERUM 0.9 mg/dL (0.7-1.3); GLUCOSE 79 mg/dL (70-105); SODIUM SERUM 137 mEq/L (136-145)
[2018-05-20] MEDS: Lactobacillus Rhamnosus GG 15 Billion CFU CAP.SPRINK PO SCH (09:16)
[2018-05-20] MEDS: Multivitamin w/ Minerals Tab PO SCH (09:16)
--- NOTE | 2018-05-20 14:31 | Consultation ---
Consult Note - Consult Note Service Date: 05/20/18 Referring Physician: Ramirez Martinez Consult Note: PHYSICIAN Consultation Note: Date of Admission: 05/15/18 Purpose of Consultation: Bacteremia Chief Complaint: poor appetite and intake, weakness. History of Present Illness: 87 y male with history of CVA , left sided weakness,HTN, Dyslipidemia brought from a SNF for loss of appetite and generalized weakness. It was associated with worsening of mdis mental status. On initial evaluation, his temperature was 97.9 F and WBC count was 6,500. blood cultures were performed and blood cultures grew 2/2 Staph hemolyticus. ID consult was called for antibiotic management. Besides this, his UA showed pyuria and bacteriuria. He has been receiving Rocephin. patient is not communicating and aphasic at this time. Past Medical History: CVA , left sided weakness,HTN, Dyslipidemia Allergies Allergy/AdvReac Type Severity Reaction Status Date / Time No Known Allergies Allergy Verified 05/15/18 17:06 Vital Signs Temp 97 F 05/20/18 04:00 Pulse 61 05/20/18 09:17 Resp 18 05/20/18 10:54 BP 113/72 05/20/18 09:17 Pulse Ox 99 05/20/18 07:48 Intake & Output 05/19/18 05/20/18 05/20/18 18:59 06:59 18:59 Intake Total 800 Balance 800 Weight (lbs) 92.85 kg Intake: Oral 800 Other: # Voids 3 # Bowel Movements 0 Weight Source Bedscale Laboratory Results - last 24 hr 05/20/18 05/20/18 05:40 05:40 WBC 5.6 RBC 4.28 Hgb 10.5 L Hct 32.9 L MCV 76.8 L MCH 24.5 L MCHC Differential 32.0 RDW 16.7 Plt Count 357 MPV 7.8 Neutrophils % 62.5 Lymphocytes % 24.6 Monocytes % 10.4 H Eosinophils % 2.3 Basophils % 0.2 Sodium 137 Potassium 4.0 Chloride 104 Carbon Dioxide 25.7 Anion Gap 11.3 BUN 28 H Creatinine 0.9 Est GFR ( Amer) TNP Est GFR (Non-Af Amer) TNP BUN/Creatinine Ratio 31.1 Glucose 79 Calcium 9.1 Home Medication Medication Instructions Recorded Type Acetaminophen [Tylenol] 650 mg PO BID 05/15/18 History Acetaminophen [Tylenol] 650 mg PO Q4HR PRN 05/15/18 History Acetaminophen [Tylenol] 650 mg PO Q4HR PRN 05/15/18 History Ascorbic Acid [Vitamin C] 500 mg PO DAILY 05/15/18 History Bisacodyl [Dulcolax 10 Mg Supp] 10 mg RC DAILY PRN 05/15/18 History Brimonidine 0.15% Ophth Flora 1 drop EACH EYE BID 05/15/18 History [Alphagan 0.15% Ophth Soln] Clonidine HCl [Catapres] 0.1 mg PO Q6H PRN 05/15/18 History Fleet Enema 135 ml RC DAILY PRN 05/15/18 History Magnesium Hydroxide [Milk of 30 ml PO DAILY PRN 05/15/18 History Magnesia] Metoprolol Succinate 25 mg PO DAILY 05/15/18 History Multivitamin with Minerals 1 tab PO DAILY 05/15/18 History [Multivitamins with Minerals] Omeprazole 40 mg PO Q12H 05/15/18 History Polyvinyl Alcohol Ophth Soln 1 drop EACH EYE QID PRN 05/15/18 History [Artificial Tears Ophth Soln] Promethazine HCl 10 ml PO Q4H PRN 05/15/18 History Tamsulosin [Flomax] 0.4 mg PO HS 05/15/18 History amLODIPine Besylate [Norvasc*] 10 mg PO DAILY 05/15/18 History Current Medications Generic Name Dose Route Start Last Admin Trade Name Freq PRN Reason Stop Dose Admin Acetaminophen 650 mg 05/15/18 23:20 Tylenol PO 07/14/18 23:19 Q4HR PRN Pain Or Fever >100.4 Amlodipine Besylate 10 mg 05/16/18 09:00 05/20/18 09:16 Norvasc PO 07/15/18 08:59 10 mg DAILY JAHAIRA Administration Brimonidine Tartrate 1 drop 05/15/18 23:30 05/20/18 09:31 Alphagan 0.15% Ophth Soln EACH EYE 07/14/18 23:29 1 drop BID JAHAIRA Administration Ceftriaxone Sodium 1 gm/ 50 mls @ 100 mls/hr 05/16/18 21:00 05/19/18 21:07 Sodium Chloride IV 07/15/18 20:59 100 mls/hr Q24HR JAHAIRA Administration Lactobacillus Rhamnosus 1 each 05/18/18 09:00 05/20/18 09:16 Culturelle 15b PO 07/17/18 08:59 1 each DAILY JAHAIRA Administration Metoprolol Succinate 25 mg 05/16/18 09:00 05/20/18 09:17 Toprol Xl PO 07/15/18 08:59 25 mg DAILY JAHAIRA Administration Miscellaneous 1 ea 05/17/18 12:14 Probiotic Screen MC 07/16/18 12:13 PRN PRN PROTOCOL Promethazine HCl 12.5 mg 05/15/18 23:20 05/18/18 21:28 Phenergan PO 07/14/18 23:19 12.5 mg Q4H PRN Administration Cough Tamsulosin HCl 0.4 mg 05/16/18 21:00 05/19/18 21:08 Flomax PO 07/15/18 20:59 0.4 mg HS JAHAIRA Administration Review of Systems: patient is unable to provide any history. Social History Smoking Status Smoker, status unknown Alcohol Use No Family Medical History Unknowen Physical Exam: General: comfortable. not in any distress/ HEENT: Head: NCNT. Oral cavilty moist pink tongue. Eyes: pallor present. no icterus. Pupil perrla. Neck: Supple. no JVD, no carotid bruit. Cardio: S1 and S2 WNL. Respiratory: CTAP. Abdominal: Soft NT ND BS present Genital/Urinary: Extremities: NCCE Neurological: obtunded and left sided flexion contracture. Assessment: 1. Staph hemolyticus bacteremia. 2. UTI. 3. Dementia, 4. HTN. 5. CVA and left sided weakness. Plan: Will increase Rocepin to 2 gm IV daily x 2 weeks./ Repeat blood culture. Echo. Thank you, Dr Martinez for involving me in taking care of this patient. Signed, Héctor Rodas M.D. [id number]
[2018-05-20] MEDS: cefTRIAXone 1 GM in Sodium Chloride 0.9% 50 ML IV SCH (20:47)
[2018-05-21] MEDS: Multivitamin w/ Minerals Tab PO SCH (09:36)
[2018-05-21] MEDS: Lactobacillus Rhamnosus GG 15 Billion CFU CAP.SPRINK PO SCH (09:36)
--- NOTE | 2018-05-21 13:29 | Infectious Disease Prog Note ---
Infectious Disease Subjective - Review of Systems Service Date: 05/21/18 Subjective: There is no new change, no fever. Infectious Disease Objective - Results Result Diagrams: 05/20/18 05:40 05/20/18 05:40 Recent Labs: Laboratory Last Values WBC 5.6 Th/cmm (4.8-10.8) 05/20/18 05:40 RBC 4.28 Mil/cmm (3.80-5.80) 05/20/18 05:40 Hgb 10.5 gm/dL (12-16) L 05/20/18 05:40 Hct 32.9 % (41.0-60) L 05/20/18 05:40 MCV 76.8 fl (80-99) L 05/20/18 05:40 MCH 24.5 pg (27.0-31.0) L 05/20/18 05:40 MCHC Differential 32.0 pg (28.0-36.0) 05/20/18 05:40 RDW 16.7 % (11.5-20.0) 05/20/18 05:40 Plt Count 357 Th/cmm (150-400) 05/20/18 05:40 MPV 7.8 fl 05/20/18 05:40 Neutrophils % 62.5 % (40.0-80.0) 05/20/18 05:40 Lymphocytes % 24.6 % (20.0-50.0) 05/20/18 05:40 Monocytes % 10.4 % (2.0-10.0) H 05/20/18 05:40 Eosinophils % 2.3 % (0.0-5.0) 05/20/18 05:40 Basophils % 0.2 % (0.0-2.0) 05/20/18 05:40 PT 12.1 SECONDS (9.5-11.5) H 05/15/18 17:30 INR 1.17 (0.5-1.4) 05/15/18 17:30 PTT (Actin FS) 28.3 SECONDS (26.0-38.0) 05/15/18 17:30 Sodium 137 mEq/L (136-145) 05/20/18 05:40 Potassium 4.0 mEq/L (3.5-5.1) 05/20/18 05:40 Chloride 104 mEq/L (98-107) 05/20/18 05:40 Carbon Dioxide 25.7 mEq/L (21.0-31.0) 05/20/18 05:40 Anion Gap 11.3 (7.0-16.0) 05/20/18 05:40 BUN 28 mg/dL (7-25) H 05/20/18 05:40 Creatinine 0.9 mg/dL (0.7-1.3) 05/20/18 05:40 Est GFR ( Amer) TNP 05/20/18 05:40 Est GFR (Non-Af Amer) TNP 05/20/18 05:40 BUN/Creatinine Ratio 31.1 05/20/18 05:40 Glucose 79 mg/dL (70-105) 05/20/18 05:40 Whole Bld Lactic Acid 0.79 mmol/L (0.60-1.99) 05/15/18 20:30 Calcium 9.1 mg/dL (8.6-10.3) 05/20/18 05:40 Total Bilirubin 0.3 mg/dL (0.3-1.0) 05/17/18 05:47 AST 9 U/L (13-39) L 05/17/18 05:47 ALT 7 U/L (7-52) 05/17/18 05:47 Alkaline Phosphatase 139 U/L (34-104) H 05/17/18 05:47 Creatine Kinase 82 U/L (30-223) 05/15/18 17:30 Troponin I 0.01 ng/mL (0.01-0.05) 05/15/18 17:30 Total Protein 6.9 gm/dL (6.0-8.3) 05/17/18 05:47 Albumin 3.3 gm/dL (4.2-5.5) L 05/17/18 05:47 Globulin 3.6 gm/dL 05/17/18 05:47 Albumin/Globulin Ratio 0.9 (1.0-1.8) L 05/17/18 05:47 Amylase 79 U/L (29-103) 05/15/18 17:30 Lipase 27 U/L (11-82) 05/15/18 17:30 Urine Source MIDSTREAM 05/15/18 19:00 Urine Color YELLOW 05/15/18 19:00 Urine Clarity HAZY (CLEAR) 05/15/18 19:00 Urine pH 6.5 (4.6 - 8.0) 05/15/18 19:00 Ur Specific [place] Line 1.020 (1.005-1.030) 05/15/18 19:00 Urine Protein 30 mg/dL (NEGATIVE) H 05/15/18 19:00 Urine Glucose (UA) NEGATIVE mg/dL (NEGATIVE) 05/15/18 19:00 Urine Ketones NEGATIVE mg/dL (NEGATIVE) 05/15/18 19:00 Urine Blood LARGE (NEGATIVE) H 05/15/18 19:00 Urine Nitrate POSITIVE (NEGATIVE) H 05/15/18 19:00 Urine Bilirubin NEGATIVE (NEGATIVE) 05/15/18 19:00 Urine Urobilinogen 1.0 E.U./dL (0.2 - 1.0) 05/15/18 19:00 Ur Leukocyte Esterase MODERATE (NEGATIVE) H 05/15/18 19:00 Urine RBC >100 /hpf (0-5) H 05/15/18 19:00 Urine WBC 10-25 /hpf (0-5) H 05/15/18 19:00 Ur Epithelial Cells FEW /lpf (FEW) 05/15/18 19:00 Urine Bacteria 4+ /hpf (NONE SEEN) H 05/15/18 19:00 - Physical Exam Vitals and I&O: Vital Signs Temp 96.8 F 05/21/18 12:00 Pulse 56 05/21/18 12:00 Resp 18 05/21/18 12:00 BP 139/84 05/21/18 12:00 Pulse Ox 96 05/21/18 12:00 Intake & Output 05/20/18 05/21/18 05/21/18 18:59 06:59 18:59 Intake Total 500 170 Balance 500 170 Weight (lbs) 94.347 kg 94.347 kg Intake: Intake, IV Amount 50 [id number] 1 gm In 50 Sodium Chloride 0.9% 50 ml @ 100 mls/hr IV Q24HR [facility] Rx#:[id number] Oral 500 120 Other: # Voids 3 3 # Bowel Movements 2 0 Weight Source Bedscale Bedscale Active Medications: Current Medications Acetaminophen (Tylenol) 650 mg PO Q4HR PRN PRN Reason: Pain Or Fever >100.4 Stop: 07/14/18 23:19 Amlodipine Besylate (Norvasc) 10 mg PO DAILY [facility] Stop: 07/15/18 08:59 Last Admin: 05/21/18 09:36 Dose: 10 mg Brimonidine Tartrate (Alphagan 0.15% Ophth Soln) 1 drop EACH EYE BID [facility] Stop: 07/14/18 23:29 Last Admin: 05/21/18 09:36 Dose: 1 drop Ceftriaxone Sodium 1 gm/ (Sodium Chloride) 50 mls @ 100 mls/hr IV Q24HR JAHAIRA Stop: 07/15/18 20:59 Last Infusion: 05/20/18 23:40 Dose: Infused Lactobacillus Rhamnosus (Culturelle 15b) 1 each PO DAILY JAHAIRA Stop: 07/17/18 08:59 Last Admin: 05/21/18 09:36 Dose: 1 each Metoprolol Succinate (Toprol Xl) 25 mg PO DAILY [facility] Stop: 07/15/18 08:59 Last Admin: 05/21/18 09:00 Dose: Not Given Miscellaneous (Probiotic Screen) 1 ea MC PRN PRN PRN Reason: PROTOCOL Stop: 07/16/18 12:13 Promethazine HCl (Phenergan) 12.5 mg PO Q4H PRN PRN Reason: Cough Stop: 07/14/18 23:19 Last Admin: 05/18/18 21:28 Dose: 12.5 mg Tamsulosin HCl (Flomax) 0.4 mg PO HS [facility] Stop: 07/15/18 20:59 Last Admin: 05/20/18 20:47 Dose: 0.4 mg General: no acute distress, well developed, well nourished HEENT: atraumatic, normocephalic, PERRLA, EOMI Neck: supple, no thyromegaly Cardiovascular: S1S2, regular Lungs: clear to auscultation bilaterally, clear to percussion, other (LEft sided weakness) Abdomen: soft, no tender, no distended Extremities: no cyanosis, no clubbing, no edema Neurological: awake, alert, oriented Skin: intact Infectious Disease Assmt/Plan - Assessment Assessment: 1. Staph hemolyticus bacteremia. 2. UTI. 3. Dementia, 4. HTN. 5. CVA and left sided weakness. - Plan Plan: Continue the same treatment. Nutritional Asmnt/Malnutr-PDOC - Dietary Evaluation Malnutrition Findings (Please click <Entered> for more info): Nutritional Asmnt/Malnutrition Start: 05/16/18 16: 16 Text: Status: Complete Freq: Protocol: Document 05/16/18 16:16 [email or web address] (Rec: 05/16/18 16:30 [email or web address]) Nutritional Asmnt/Malnutrition Patient General Information Nutritional Screening High Risk Consult Diagnosis sepsis, UTI Pertinent Medical Hx/Surgical Hx HTN, dyslipidemia Subjective Information Consult received for charlee 11 , sacral wound. Pt seen sleeping in bed at time of visit. RN stated pt is a feeder, consumed 50% of breakfast and lunch today. Current Diet Order/ Nutrition Support pureed Pertinent Medications reviewed Pertinent Labs 05/15 Na 135, glucose 102, alb 3.4 Nutritional Hx/Data Height 1.7 m Height (Calculated Centimeters) 170.2 Current Weight (lbs) 77.111 kg Weight (Calculated Kilograms) 77.1 Weight (Calculated Grams) 23416.7 [place] Body Weight 148 Body Mass Index (BMI) 26.6 Weight Status Overweight GI Symptoms GI Symptoms None Last BM not indicated Difficult in: None Skin Integrity/Comment: brakon skin to left sacral per wound care note Current %PO Fair (50-74%) Estimated Nutritional Goals BEE in Kcals: Using Current wt Calories/Kcals/Kg 27-32 Kcals Calculated 7067-9843 Protein: Using Current wt Protein g/k-1.2 Protein Calculated 77-92 Fluid: ml 2079-2464ml (1ml/kcal) Nutritional Problem 1. Problem Problem increased nutrition needs Etiology increased metabilic demand for wound healing Signs/Symptoms: broken skin on left sacral Malnutrition Alert Is there a minimum of two criteria No selected? Query Text:Check all the applicable criteria. A minimum of two criteria are recommended for diagnosis of either severe or non-severe malnutrition. Malnutrition Related to Morbid Obesity Malnutrition related to morbid obesity No Intervention/Recommendation Comments 1. Continue with pureed diet as ordered. Assist pt with all meals. Consider adding nutrition supplement if PO continue <=50%. 2. Monitor PO intake, wt, labs and skin integrity 3. F/U as high risk in 2-3 day Expected Outcomes/Goals Expected Outcomes/Goals 1. PO intake to meet at least 75% of nutritional needs. 2. Wt stability, skin integrity to improve, labs to approach WNL.
[2018-05-21] MEDS: cefTRIAXone 1 GM in Sodium Chloride 0.9% 50 ML IV SCH (21:21)
--- NOTE | 2018-05-21 21:33 | General Progress Note ---
Subjective - Review of Systems Service Date: 06/20/18 Subjective: Patient seen and examined no new concern noted Objective - Results Result Diagrams: 05/20/18 05:40 05/20/18 05:40 Recent Labs: Laboratory Last Values WBC 5.6 Th/cmm (4.8-10.8) 05/20/18 05:40 RBC 4.28 Mil/cmm (3.80-5.80) 05/20/18 05:40 Hgb 10.5 gm/dL (12-16) L 05/20/18 05:40 Hct 32.9 % (41.0-60) L 05/20/18 05:40 MCV 76.8 fl (80-99) L 05/20/18 05:40 MCH 24.5 pg (27.0-31.0) L 05/20/18 05:40 MCHC Differential 32.0 pg (28.0-36.0) 05/20/18 05:40 RDW 16.7 % (11.5-20.0) 05/20/18 05:40 Plt Count 357 Th/cmm (150-400) 05/20/18 05:40 MPV 7.8 fl 05/20/18 05:40 Neutrophils % 62.5 % (40.0-80.0) 05/20/18 05:40 Lymphocytes % 24.6 % (20.0-50.0) 05/20/18 05:40 Monocytes % 10.4 % (2.0-10.0) H 05/20/18 05:40 Eosinophils % 2.3 % (0.0-5.0) 05/20/18 05:40 Basophils % 0.2 % (0.0-2.0) 05/20/18 05:40 PT 12.1 SECONDS (9.5-11.5) H 05/15/18 17:30 INR 1.17 (0.5-1.4) 05/15/18 17:30 PTT (Actin FS) 28.3 SECONDS (26.0-38.0) 05/15/18 17:30 Sodium 137 mEq/L (136-145) 05/20/18 05:40 Potassium 4.0 mEq/L (3.5-5.1) 05/20/18 05:40 Chloride 104 mEq/L (98-107) 05/20/18 05:40 Carbon Dioxide 25.7 mEq/L (21.0-31.0) 05/20/18 05:40 Anion Gap 11.3 (7.0-16.0) 05/20/18 05:40 BUN 28 mg/dL (7-25) H 05/20/18 05:40 Creatinine 0.9 mg/dL (0.7-1.3) 05/20/18 05:40 Est GFR ( Amer) TNP 05/20/18 05:40 Est GFR (Non-Af Amer) TNP 05/20/18 05:40 BUN/Creatinine Ratio 31.1 05/20/18 05:40 Glucose 79 mg/dL (70-105) 05/20/18 05:40 Whole Bld Lactic Acid 0.79 mmol/L (0.60-1.99) 05/15/18 20:30 Calcium 9.1 mg/dL (8.6-10.3) 05/20/18 05:40 Total Bilirubin 0.3 mg/dL (0.3-1.0) 05/17/18 05:47 AST 9 U/L (13-39) L 05/17/18 05:47 ALT 7 U/L (7-52) 05/17/18 05:47 Alkaline Phosphatase 139 U/L (34-104) H 05/17/18 05:47 Creatine Kinase 82 U/L (30-223) 05/15/18 17:30 Troponin I 0.01 ng/mL (0.01-0.05) 05/15/18 17:30 Total Protein 6.9 gm/dL (6.0-8.3) 05/17/18 05:47 Albumin 3.3 gm/dL (4.2-5.5) L 05/17/18 05:47 Globulin 3.6 gm/dL 05/17/18 05:47 Albumin/Globulin Ratio 0.9 (1.0-1.8) L 05/17/18 05:47 Amylase 79 U/L (29-103) 05/15/18 17:30 Lipase 27 U/L (11-82) 05/15/18 17:30 Urine Source MIDSTREAM 05/15/18 19:00 Urine Color YELLOW 05/15/18 19:00 Urine Clarity HAZY (CLEAR) 05/15/18 19:00 Urine pH 6.5 (4.6 - 8.0) 05/15/18 19:00 Ur Specific [place] 1.020 (1.005-1.030) 05/15/18 19:00 Urine Protein 30 mg/dL (NEGATIVE) H 05/15/18 19:00 Urine Glucose (UA) NEGATIVE mg/dL (NEGATIVE) 05/15/18 19:00 Urine Ketones NEGATIVE mg/dL (NEGATIVE) 05/15/18 19:00 Urine Blood LARGE (NEGATIVE) H 05/15/18 19:00 Urine Nitrate POSITIVE (NEGATIVE) H 05/15/18 19:00 Urine Bilirubin NEGATIVE (NEGATIVE) 05/15/18 19:00 Urine Urobilinogen 1.0 E.U./dL (0.2 - 1.0) 05/15/18 19:00 Ur Leukocyte Esterase MODERATE (NEGATIVE) H 05/15/18 19:00 Urine RBC >100 /hpf (0-5) H 05/15/18 19:00 Urine WBC 10-25 /hpf (0-5) H 05/15/18 19:00 Ur Epithelial Cells FEW /lpf (FEW) 05/15/18 19:00 Urine Bacteria 4+ /hpf (NONE SEEN) H 05/15/18 19:00 - Physical Exam Vitals and I&O: Vital Signs Temp 98.0 F 05/21/18 20:00 Pulse 75 05/21/18 20:00 Resp 19 05/21/18 20:00 BP 120/83 05/21/18 20:00 Pulse Ox 96 05/21/18 20:00 Intake & Output 05/21/18 05/21/18 05/22/18 06:59 18:59 06:59 Intake Total 170 650 Balance 170 650 Weight (lbs) 94.347 kg 94.529 kg Intake: Intake, IV Amount 50 cefTRIAXone 1 gm In 50 Sodium Chloride 0.9% 50 ml @ 100 mls/hr IV Q24HR [facility] Rx#:[id number] Oral 120 650 Other: # Voids 3 3 # Bowel Movements 0 1 Weight Source Bedscale Bedscale Active Medications: Current Medications Acetaminophen (Tylenol) 650 mg PO Q4HR PRN PRN Reason: Pain Or Fever >100.4 Stop: 07/14/18 23:19 Amlodipine Besylate (Norvasc) 10 mg PO DAILY [facility] Stop: 07/15/18 08:59 Last Admin: 05/21/18 09:36 Dose: 10 mg Brimonidine Tartrate (Alphagan 0.15% Ophth Soln) 1 drop EACH EYE BID [facility] Stop: 07/14/18 23:29 Last Admin: 05/21/18 16:53 Dose: 1 drop Ceftriaxone Sodium 1 gm/ (Sodium Chloride) 50 mls @ 100 mls/hr IV Q24HR [facility] Stop: 07/15/18 20:59 Last Admin: 05/21/18 21:21 Dose: 100 mls/hr Lactobacillus Rhamnosus (Culturelle 15b) 1 each PO DAILY [facility] Stop: 07/17/18 08:59 Last Admin: 05/21/18 09:36 Dose: 1 each Metoprolol Succinate (Toprol Xl) 25 mg PO DAILY [facility] Stop: 07/15/18 08:59 Last Admin: 05/21/18 09:00 Dose: Not Given Miscellaneous (Probiotic Screen) 1 ea MC PRN PRN PRN Reason: PROTOCOL Stop: 07/16/18 12:13 Promethazine HCl (Phenergan) 12.5 mg PO Q4H PRN PRN Reason: Cough Stop: 07/14/18 23:19 Last Admin: 05/18/18 21:28 Dose: 12.5 mg Tamsulosin HCl (Flomax) 0.4 mg PO HS [facility] Stop: 07/15/18 20:59 Last Admin: 05/21/18 21:22 Dose: 0.4 mg Cardiovascular: Regular rate Lungs: Clear to auscultation Abdomen: Soft, no Tender Assessment/Plan - Assessment Assessment: UTI Staph bacteremia CHF AFIB HTN DEMENTIA DYSPHAGIA - Plan Plan: Continue Rocephin Cardiac status stable Dysphagia diet Follow repeat blood culture Plan of care discussed with nursing staff Nutritional Asmnt/Malnutr-PDOC - Dietary Evaluation Malnutrition Findings (Please click <Entered> for more info): Nutritional Asmnt/Malnutrition Start: 05/16/18 16: 16 Text: Status: Complete Freq: Protocol: Document 05/16/18 16:16 [email or web address] (Rec: 05/16/18 16:30 [email or web address]) Nutritional Asmnt/Malnutrition Patient General Information Nutritional Screening High Risk Consult Diagnosis sepsis, UTI Pertinent Medical Hx/Surgical Hx HTN, dyslipidemia Subjective Information Consult received for charlee 11 , sacral wound. Pt seen sleeping in bed at time of visit. RN stated pt is a feeder, consumed 50% of breakfast and lunch today. Current Diet Order/ Nutrition Support pureed Pertinent Medications reviewed Pertinent Labs 05/15 Na 135, glucose 102, alb 3.4 Nutritional Hx/Data Height 1.7 m Height (Calculated Centimeters) 170.2 Current Weight (lbs) 77.111 kg Weight (Calculated Kilograms) 77.1 Weight (Calculated Grams) 67332.7 [place] Body Weight 148 Body Mass Index (BMI) 26.6 Weight Status Overweight GI Symptoms GI Symptoms None Last BM not indicated Difficult in: None Skin Integrity/Comment: brakon skin to left sacral per wound care note Current %PO Fair (50-74%) Estimated Nutritional Goals BEE in Kcals: Using Current wt Calories/Kcals/Kg 27-32 Kcals Calculated 8812-5388 Protein: Using Current wt Protein g/k-1.2 Protein Calculated 77-92 Fluid: ml 2079-2464ml (1ml/kcal) Nutritional Problem 1. Problem Problem increased nutrition needs Etiology increased metabilic demand for wound healing Signs/Symptoms: broken skin on left sacral Malnutrition Alert Is there a minimum of two criteria No selected? Query Text:Check all the applicable criteria. A minimum of two criteria are recommended for diagnosis of either severe or non-severe malnutrition. Malnutrition Related to Morbid Obesity Malnutrition related to morbid obesity No Intervention/Recommendation Comments 1. Continue with pureed diet as ordered. Assist pt with all meals. Consider adding nutrition supplement if PO continue <=50%. 2. Monitor PO intake, wt, labs and skin integrity 3. F/U as high risk in 2-3 day Expected Outcomes/Goals Expected Outcomes/Goals 1. PO intake to meet at least 75% of nutritional needs. 2. Wt stability, skin integrity to improve, labs to approach WNL.
--- NOTE | 2018-05-21 21:38 | General Progress Note ---
Subjective - Review of Systems Service Date: 05/21/18 Subjective: Patient seen and examined no new concern noted Objective - Results Result Diagrams: 05/20/18 05:40 05/20/18 05:40 Recent Labs: Laboratory Last Values WBC 5.6 Th/cmm (4.8-10.8) 05/20/18 05:40 RBC 4.28 Mil/cmm (3.80-5.80) 05/20/18 05:40 Hgb 10.5 gm/dL (12-16) L 05/20/18 05:40 Hct 32.9 % (41.0-60) L 05/20/18 05:40 MCV 76.8 fl (80-99) L 05/20/18 05:40 MCH 24.5 pg (27.0-31.0) L 05/20/18 05:40 MCHC Differential 32.0 pg (28.0-36.0) 05/20/18 05:40 RDW 16.7 % (11.5-20.0) 05/20/18 05:40 Plt Count 357 Th/cmm (150-400) 05/20/18 05:40 MPV 7.8 fl 05/20/18 05:40 Neutrophils % 62.5 % (40.0-80.0) 05/20/18 05:40 Lymphocytes % 24.6 % (20.0-50.0) 05/20/18 05:40 Monocytes % 10.4 % (2.0-10.0) H 05/20/18 05:40 Eosinophils % 2.3 % (0.0-5.0) 05/20/18 05:40 Basophils % 0.2 % (0.0-2.0) 05/20/18 05:40 PT 12.1 SECONDS (9.5-11.5) H 05/15/18 17:30 INR 1.17 (0.5-1.4) 05/15/18 17:30 PTT (Actin FS) 28.3 SECONDS (26.0-38.0) 05/15/18 17:30 Sodium 137 mEq/L (136-145) 05/20/18 05:40 Potassium 4.0 mEq/L (3.5-5.1) 05/20/18 05:40 Chloride 104 mEq/L (98-107) 05/20/18 05:40 Carbon Dioxide 25.7 mEq/L (21.0-31.0) 05/20/18 05:40 Anion Gap 11.3 (7.0-16.0) 05/20/18 05:40 BUN 28 mg/dL (7-25) H 05/20/18 05:40 Creatinine 0.9 mg/dL (0.7-1.3) 05/20/18 05:40 Est GFR ( Amer) TNP 05/20/18 05:40 Est GFR (Non-Af Amer) TNP 05/20/18 05:40 BUN/Creatinine Ratio 31.1 05/20/18 05:40 Glucose 79 mg/dL (70-105) 05/20/18 05:40 Whole Bld Lactic Acid 0.79 mmol/L (0.60-1.99) 05/15/18 20:30 Calcium 9.1 mg/dL (8.6-10.3) 05/20/18 05:40 Total Bilirubin 0.3 mg/dL (0.3-1.0) 05/17/18 05:47 AST 9 U/L (13-39) L 05/17/18 05:47 ALT 7 U/L (7-52) 05/17/18 05:47 Alkaline Phosphatase 139 U/L (34-104) H 05/17/18 05:47 Creatine Kinase 82 U/L (30-223) 05/15/18 17:30 Troponin I 0.01 ng/mL (0.01-0.05) 05/15/18 17:30 Total Protein 6.9 gm/dL (6.0-8.3) 05/17/18 05:47 Albumin 3.3 gm/dL (4.2-5.5) L 05/17/18 05:47 Globulin 3.6 gm/dL 05/17/18 05:47 Albumin/Globulin Ratio 0.9 (1.0-1.8) L 05/17/18 05:47 Amylase 79 U/L (29-103) 05/15/18 17:30 Lipase 27 U/L (11-82) 05/15/18 17:30 Urine Source MIDSTREAM 05/15/18 19:00 Urine Color YELLOW 05/15/18 19:00 Urine Clarity HAZY (CLEAR) 05/15/18 19:00 Urine pH 6.5 (4.6 - 8.0) 05/15/18 19:00 Ur Specific [place] 1.020 (1.005-1.030) 05/15/18 19:00 Urine Protein 30 mg/dL (NEGATIVE) H 05/15/18 19:00 Urine Glucose (UA) NEGATIVE mg/dL (NEGATIVE) 05/15/18 19:00 Urine Ketones NEGATIVE mg/dL (NEGATIVE) 05/15/18 19:00 Urine Blood LARGE (NEGATIVE) H 05/15/18 19:00 Urine Nitrate POSITIVE (NEGATIVE) H 05/15/18 19:00 Urine Bilirubin NEGATIVE (NEGATIVE) 05/15/18 19:00 Urine Urobilinogen 1.0 E.U./dL (0.2 - 1.0) 05/15/18 19:00 Ur Leukocyte Esterase MODERATE (NEGATIVE) H 05/15/18 19:00 Urine RBC >100 /hpf (0-5) H 05/15/18 19:00 Urine WBC 10-25 /hpf (0-5) H 05/15/18 19:00 Ur Epithelial Cells FEW /lpf (FEW) 05/15/18 19:00 Urine Bacteria 4+ /hpf (NONE SEEN) H 05/15/18 19:00 - Physical Exam Vitals and I&O: Vital Signs Temp 98.0 F 05/21/18 20:00 Pulse 75 05/21/18 20:00 Resp 19 05/21/18 20:00 BP 120/83 05/21/18 20:00 Pulse Ox 96 05/21/18 20:00 Intake & Output 05/21/18 05/21/18 05/22/18 06:59 18:59 06:59 Intake Total 170 650 Balance 170 650 Weight (lbs) 94.347 kg 94.529 kg Intake: Intake, IV Amount 50 cefTRIAXone 1 gm In 50 Sodium Chloride 0.9% 50 ml @ 100 mls/hr IV Q24HR [facility] Rx#:[id number] Oral 120 650 Other: # Voids 3 3 # Bowel Movements 0 1 Weight Source Bedscale Bedscale Active Medications: Current Medications Acetaminophen (Tylenol) 650 mg PO Q4HR PRN PRN Reason: Pain Or Fever >100.4 Stop: 07/14/18 23:19 Amlodipine Besylate (Norvasc) 10 mg PO DAILY [facility] Stop: 07/15/18 08:59 Last Admin: 05/21/18 09:36 Dose: 10 mg Brimonidine Tartrate (Alphagan 0.15% Ophth Soln) 1 drop EACH EYE BID [facility] Stop: 07/14/18 23:29 Last Admin: 05/21/18 16:53 Dose: 1 drop Ceftriaxone Sodium 1 gm/ (Sodium Chloride) 50 mls @ 100 mls/hr IV Q24HR [facility] Stop: 07/15/18 20:59 Last Admin: 05/21/18 21:21 Dose: 100 mls/hr Lactobacillus Rhamnosus (Culturelle 15b) 1 each PO DAILY [facility] Stop: 07/17/18 08:59 Last Admin: 05/21/18 09:36 Dose: 1 each Metoprolol Succinate (Toprol Xl) 25 mg PO DAILY [facility] Stop: 07/15/18 08:59 Last Admin: 05/21/18 09:00 Dose: Not Given Miscellaneous (Probiotic Screen) 1 ea MC PRN PRN PRN Reason: PROTOCOL Stop: 07/16/18 12:13 Promethazine HCl (Phenergan) 12.5 mg PO Q4H PRN PRN Reason: Cough Stop: 07/14/18 23:19 Last Admin: 05/18/18 21:28 Dose: 12.5 mg Tamsulosin HCl (Flomax) 0.4 mg PO HS [facility] Stop: 07/15/18 20:59 Last Admin: 05/21/18 21:22 Dose: 0.4 mg Cardiovascular: Regular rate Lungs: Clear to auscultation Abdomen: Soft, no Tender Assessment/Plan - Assessment Assessment: UTI Staph bacteremia CHF AFIB HTN DEMENTIA DYSPHAGIA - Plan Plan: Case discussed with ID Recomended two weeks of IV Rocephine upon discharge Pending ECHO Continue Rocephin Cardiac status stable Dysphagia diet Follow repeat blood culture Plan of care discussed with nursing staff Nutritional Asmnt/Malnutr-PDOC - Dietary Evaluation Malnutrition Findings (Please click <Entered> for more info): Nutritional Asmnt/Malnutrition Start: 05/16/18 16: 16 Text: Status: Complete Freq: Protocol: Document 05/16/18 16:16 [email or web address] (Rec: 05/16/18 16:30 [email or web address]) Nutritional Asmnt/Malnutrition Patient General Information Nutritional Screening High Risk Consult Diagnosis sepsis, UTI Pertinent Medical Hx/Surgical Hx HTN, dyslipidemia Subjective Information Consult received for charlee 11 , sacral wound. Pt seen sleeping in bed at time of visit. RN stated pt is a feeder, consumed 50% of breakfast and lunch today. Current Diet Order/ Nutrition Support pureed Pertinent Medications reviewed Pertinent Labs 05/15 Na 135, glucose 102, alb 3.4 Nutritional Hx/Data Height 1.7 m Height (Calculated Centimeters) 170.2 Current Weight (lbs) 77.111 kg Weight (Calculated Kilograms) 77.1 Weight (Calculated Grams) 03645.7 [place] Body Weight 148 Body Mass Index (BMI) 26.6 Weight Status Overweight GI Symptoms GI Symptoms None Last BM not indicated Difficult in: None Skin Integrity/Comment: brakon skin to left sacral per wound care note Current %PO Fair (50-74%) Estimated Nutritional Goals BEE in Kcals: Using Current wt Calories/Kcals/Kg 27-32 Kcals Calculated 0264-7351 Protein: Using Current wt Protein g/k-1.2 Protein Calculated 77-92 Fluid: ml 2079-2464ml (1ml/kcal) Nutritional Problem 1. Problem Problem increased nutrition needs Etiology increased metabilic demand for wound healing Signs/Symptoms: broken skin on left sacral Malnutrition Alert Is there a minimum of two criteria No selected? Query Text:Check all the applicable criteria. A minimum of two criteria are recommended for diagnosis of either severe or non-severe malnutrition. Malnutrition Related to Morbid Obesity Malnutrition related to morbid obesity No Intervention/Recommendation Comments 1. Continue with pureed diet as ordered. Assist pt with all meals. Consider adding nutrition supplement if PO continue <=50%. 2. Monitor PO intake, wt, labs and skin integrity 3. F/U as high risk in 2-3 day Expected Outcomes/Goals Expected Outcomes/Goals 1. PO intake to meet at least 75% of nutritional needs. 2. Wt stability, skin integrity to improve, labs to approach WNL.
[2018-05-22] MEDS: Multivitamin w/ Minerals Tab PO SCH (08:55)
[2018-05-22] MEDS: Lactobacillus Rhamnosus GG 15 Billion CFU CAP.SPRINK PO SCH (08:55)
--- NOTE | 2018-05-22 13:37 | General Progress Note ---
Subjective - Review of Systems Service Date: 05/22/18 Subjective: Patient seen and examined afebrile breathing fine Objective - Results Result Diagrams: 05/20/18 05:40 05/20/18 05:40 Recent Labs: Laboratory Last Values WBC 5.6 Th/cmm (4.8-10.8) 05/20/18 05:40 RBC 4.28 Mil/cmm (3.80-5.80) 05/20/18 05:40 Hgb 10.5 gm/dL (12-16) L 05/20/18 05:40 Hct 32.9 % (41.0-60) L 05/20/18 05:40 MCV 76.8 fl (80-99) L 05/20/18 05:40 MCH 24.5 pg (27.0-31.0) L 05/20/18 05:40 MCHC Differential 32.0 pg (28.0-36.0) 05/20/18 05:40 RDW 16.7 % (11.5-20.0) 05/20/18 05:40 Plt Count 357 Th/cmm (150-400) 05/20/18 05:40 MPV 7.8 fl 05/20/18 05:40 Neutrophils % 62.5 % (40.0-80.0) 05/20/18 05:40 Lymphocytes % 24.6 % (20.0-50.0) 05/20/18 05:40 Monocytes % 10.4 % (2.0-10.0) H 05/20/18 05:40 Eosinophils % 2.3 % (0.0-5.0) 05/20/18 05:40 Basophils % 0.2 % (0.0-2.0) 05/20/18 05:40 PT 12.1 SECONDS (9.5-11.5) H 05/15/18 17:30 INR 1.17 (0.5-1.4) 05/15/18 17:30 PTT (Actin FS) 28.3 SECONDS (26.0-38.0) 05/15/18 17:30 Sodium 137 mEq/L (136-145) 05/20/18 05:40 Potassium 4.0 mEq/L (3.5-5.1) 05/20/18 05:40 Chloride 104 mEq/L (98-107) 05/20/18 05:40 Carbon Dioxide 25.7 mEq/L (21.0-31.0) 05/20/18 05:40 Anion Gap 11.3 (7.0-16.0) 05/20/18 05:40 BUN 28 mg/dL (7-25) H 05/20/18 05:40 Creatinine 0.9 mg/dL (0.7-1.3) 05/20/18 05:40 Est GFR ( Amer) TNP 05/20/18 05:40 Est GFR (Non-Af Amer) TNP 05/20/18 05:40 BUN/Creatinine Ratio 31.1 05/20/18 05:40 Glucose 79 mg/dL (70-105) 05/20/18 05:40 Whole Bld Lactic Acid 0.79 mmol/L (0.60-1.99) 05/15/18 20:30 Calcium 9.1 mg/dL (8.6-10.3) 05/20/18 05:40 Total Bilirubin 0.3 mg/dL (0.3-1.0) 05/17/18 05:47 AST 9 U/L (13-39) L 05/17/18 05:47 ALT 7 U/L (7-52) 05/17/18 05:47 Alkaline Phosphatase 139 U/L (34-104) H 05/17/18 05:47 Creatine Kinase 82 U/L (30-223) 05/15/18 17:30 Troponin I 0.01 ng/mL (0.01-0.05) 05/15/18 17:30 Total Protein 6.9 gm/dL (6.0-8.3) 05/17/18 05:47 Albumin 3.3 gm/dL (4.2-5.5) L 05/17/18 05:47 Globulin 3.6 gm/dL 05/17/18 05:47 Albumin/Globulin Ratio 0.9 (1.0-1.8) L 05/17/18 05:47 Amylase 79 U/L (29-103) 05/15/18 17:30 Lipase 27 U/L (11-82) 05/15/18 17:30 Urine Source MIDSTREAM 05/15/18 19:00 Urine Color YELLOW 05/15/18 19:00 Urine Clarity HAZY (CLEAR) 05/15/18 19:00 Urine pH 6.5 (4.6 - 8.0) 05/15/18 19:00 Ur Specific [place] 1.020 (1.005-1.030) 05/15/18 19:00 Urine Protein 30 mg/dL (NEGATIVE) H 05/15/18 19:00 Urine Glucose (UA) NEGATIVE mg/dL (NEGATIVE) 05/15/18 19:00 Urine Ketones NEGATIVE mg/dL (NEGATIVE) 05/15/18 19:00 Urine Blood LARGE (NEGATIVE) H 05/15/18 19:00 Urine Nitrate POSITIVE (NEGATIVE) H 05/15/18 19:00 Urine Bilirubin NEGATIVE (NEGATIVE) 05/15/18 19:00 Urine Urobilinogen 1.0 E.U./dL (0.2 - 1.0) 05/15/18 19:00 Ur Leukocyte Esterase MODERATE (NEGATIVE) H 05/15/18 19:00 Urine RBC >100 /hpf (0-5) H 05/15/18 19:00 Urine WBC 10-25 /hpf (0-5) H 05/15/18 19:00 Ur Epithelial Cells FEW /lpf (FEW) 05/15/18 19:00 Urine Bacteria 4+ /hpf (NONE SEEN) H 05/15/18 19:00 - Physical Exam Vitals and I&O: Vital Signs Temp 96.6 F 05/22/18 12:22 Pulse 52 05/22/18 12:22 Resp 18 05/22/18 12:22 BP 109/71 05/22/18 12:22 Pulse Ox 98 05/22/18 12:22 Intake & Output 05/21/18 05/22/18 05/22/18 18:59 06:59 18:59 Intake Total 650 150 Balance 650 150 Weight (lbs) 94.529 kg 94.529 kg Intake: Intake, IV Amount 50 cefTRIAXone 1 gm In 50 Sodium Chloride 0.9% 50 ml @ 100 mls/hr IV Q24HR [facility] Rx#:[id number] Oral 650 100 Other: # Voids 3 2 # Bowel Movements 1 0 Weight Source Bedscale Bedscale Active Medications: Current Medications Acetaminophen (Tylenol) 650 mg PO Q4HR PRN PRN Reason: Pain Or Fever >100.4 Stop: 07/14/18 23:19 Amlodipine Besylate (Norvasc) 10 mg PO DAILY [facility] Stop: 07/15/18 08:59 Last Admin: 05/22/18 08:59 Dose: Not Given Brimonidine Tartrate (Alphagan 0.15% Ophth Soln) 1 drop EACH EYE BID [facility] Stop: 07/14/18 23:29 Last Admin: 05/22/18 09:02 Dose: 1 drop Ceftriaxone Sodium 1 gm/ (Sodium Chloride) 50 mls @ 100 mls/hr IV Q24HR [facility] Stop: 07/15/18 20:59 Last Infusion: 05/21/18 23:30 Dose: Infused Lactobacillus Rhamnosus (Culturelle 15b) 1 each PO DAILY [facility] Stop: 07/17/18 08:59 Last Admin: 05/22/18 08:55 Dose: 1 each Metoprolol Succinate (Toprol Xl) 25 mg PO DAILY [facility] Stop: 07/15/18 08:59 Last Admin: 05/22/18 09:00 Dose: Not Given Miscellaneous (Probiotic Screen) 1 ea MC PRN PRN PRN Reason: PROTOCOL Stop: 07/16/18 12:13 Promethazine HCl (Phenergan) 12.5 mg PO Q4H PRN PRN Reason: Cough Stop: 07/14/18 23:19 Last Admin: 05/18/18 21:28 Dose: 12.5 mg Tamsulosin HCl (Flomax) 0.4 mg PO HS [facility] Stop: 07/15/18 20:59 Last Admin: 05/21/18 21:22 Dose: 0.4 mg Cardiovascular: Regular rate Lungs: Clear to auscultation Abdomen: Soft, no Tender Assessment/Plan - Assessment Assessment: UTI Staph bacteremia CHF AFIB HTN DEMENTIA DYSPHAGIA - Plan Plan: Case discussed with ID Recomended two weeks of IV Rocephine upon discharge Pending ECHO Continue Rocephin Cardiac status stable Dysphagia diet repeat blood culture no growth DC back to [facility] today Plan of care discussed with nursing staff Nutritional Asmnt/Malnutr-PDOC - Dietary Evaluation Malnutrition Findings (Please click <Entered> for more info): Nutritional Asmnt/Malnutrition Start: 05/16/18 16: 16 Text: Status: Complete Freq: Protocol: Document 05/16/18 16:16 LCHENG (Rec: 05/16/18 16:30 [email or web address]) Nutritional Asmnt/Malnutrition Patient General Information Nutritional Screening High Risk Consult Diagnosis sepsis, UTI Pertinent Medical Hx/Surgical Hx HTN, dyslipidemia Subjective Information Consult received for charlee 11 , sacral wound. Pt seen sleeping in bed at time of visit. RN stated pt is a feeder, consumed 50% of breakfast and lunch today. Current Diet Order/ Nutrition Support pureed Pertinent Medications reviewed Pertinent Labs 05/15 Na 135, glucose 102, alb 3.4 Nutritional Hx/Data Height 1.7 m Height (Calculated Centimeters) 170.2 Current Weight (lbs) 77.111 kg Weight (Calculated Kilograms) 77.1 Weight (Calculated Grams) 57557.7 [place] Body Weight 148 Body Mass Index (BMI) 26.6 Weight Status Overweight GI Symptoms GI Symptoms None Last BM not indicated Difficult in: None Skin Integrity/Comment: brakon skin to left sacral per wound care note Current %PO Fair (50-74%) Estimated Nutritional Goals BEE in Kcals: Using Current wt Calories/Kcals/Kg 27-32 Kcals Calculated 6225-6247 Protein: Using Current wt Protein g/k-1.2 Protein Calculated 77-92 Fluid: ml 2079-2464ml (1ml/kcal) Nutritional Problem 1. Problem Problem increased nutrition needs Etiology increased metabilic demand for wound healing Signs/Symptoms: broken skin on left sacral Malnutrition Alert Is there a minimum of two criteria No selected? Query Text:Check all the applicable criteria. A minimum of two criteria are recommended for diagnosis of either severe or non-severe malnutrition. Malnutrition Related to Morbid Obesity Malnutrition related to morbid obesity No Intervention/Recommendation Comments 1. Continue with pureed diet as ordered. Assist pt with all meals. Consider adding nutrition supplement if PO continue <=50%. 2. Monitor PO intake, wt, labs and skin integrity 3. F/U as high risk in 2-3 day Expected Outcomes/Goals Expected Outcomes/Goals 1. PO intake to meet at least 75% of nutritional needs. 2. Wt stability, skin integrity to improve, labs to approach WNL.
--- NOTE | 2018-05-22 17:52 | Cardiology ---
05/21/[address] Martinez. M-MODE ECHOCARDIOGRAM: Mitral valve, anterior leaflet of mitral valve shows normal excursion, EF velocity. Posterior leaflet of the mitral valve shows normal excursion. Left ventricular posterior wall shows increased thickness, normal excursion. Interventricular septum shows increased thickness, normal excursion, hypertrophy of the left ventricle, ejection fraction 55%. Left atrium normal. Aortic root shows normal dimension, normal excursion of aortic leaflets. CONCLUSION: Hypertrophy of the left ventricle, ejection fraction 55%. 2D ECHO ON THE SAME PATIENT: Long axis view showed normal sized left ventricle with hypertrophy of the left ventricle. Left atrium is normal. Aortic root shows normal dimension, normal excursion of aortic leaflets. Short axis view of mitral valve normal. Short axis view of aortic valve normal. Apical four chamber view showed normal sized left ventricle with hypertrophy of the left ventricle. Left atrium normal. Right ventricular cavity, right atrium normal, no pericardial effusion. CONCLUSION: Hypertrophy of the left ventricle, ejection fraction 55%. Doppler study shows mild mitral regurgitation, mild tricuspid regurgitation. JOB# [id number]
--- NOTE | 2018-05-22 19:35 | Infectious Disease Prog Note ---
Infectious Disease Subjective - Review of Systems Service Date: 05/22/18 Subjective: There is no new change, no fever. Infectious Disease Objective - Results Result Diagrams: 05/20/18 05:40 05/20/18 05:40 Recent Labs: Laboratory Last Values WBC 5.6 Th/cmm (4.8-10.8) 05/20/18 05:40 RBC 4.28 Mil/cmm (3.80-5.80) 05/20/18 05:40 Hgb 10.5 gm/dL (12-16) L 05/20/18 05:40 Hct 32.9 % (41.0-60) L 05/20/18 05:40 MCV 76.8 fl (80-99) L 05/20/18 05:40 MCH 24.5 pg (27.0-31.0) L 05/20/18 05:40 MCHC Differential 32.0 pg (28.0-36.0) 05/20/18 05:40 RDW 16.7 % (11.5-20.0) 05/20/18 05:40 Plt Count 357 Th/cmm (150-400) 05/20/18 05:40 MPV 7.8 fl 05/20/18 05:40 Neutrophils % 62.5 % (40.0-80.0) 05/20/18 05:40 Lymphocytes % 24.6 % (20.0-50.0) 05/20/18 05:40 Monocytes % 10.4 % (2.0-10.0) H 05/20/18 05:40 Eosinophils % 2.3 % (0.0-5.0) 05/20/18 05:40 Basophils % 0.2 % (0.0-2.0) 05/20/18 05:40 PT 12.1 SECONDS (9.5-11.5) H 05/15/18 17:30 INR 1.17 (0.5-1.4) 05/15/18 17:30 PTT (Actin FS) 28.3 SECONDS (26.0-38.0) 05/15/18 17:30 Sodium 137 mEq/L (136-145) 05/20/18 05:40 Potassium 4.0 mEq/L (3.5-5.1) 05/20/18 05:40 Chloride 104 mEq/L (98-107) 05/20/18 05:40 Carbon Dioxide 25.7 mEq/L (21.0-31.0) 05/20/18 05:40 Anion Gap 11.3 (7.0-16.0) 05/20/18 05:40 BUN 28 mg/dL (7-25) H 05/20/18 05:40 Creatinine 0.9 mg/dL (0.7-1.3) 05/20/18 05:40 Est GFR ( Amer) TNP 05/20/18 05:40 Est GFR (Non-Af Amer) TNP 05/20/18 05:40 BUN/Creatinine Ratio 31.1 05/20/18 05:40 Glucose 79 mg/dL (70-105) 05/20/18 05:40 Whole Bld Lactic Acid 0.79 mmol/L (0.60-1.99) 05/15/18 20:30 Calcium 9.1 mg/dL (8.6-10.3) 05/20/18 05:40 Total Bilirubin 0.3 mg/dL (0.3-1.0) 05/17/18 05:47 AST 9 U/L (13-39) L 05/17/18 05:47 ALT 7 U/L (7-52) 05/17/18 05:47 Alkaline Phosphatase 139 U/L (34-104) H 05/17/18 05:47 Creatine Kinase 82 U/L (30-223) 05/15/18 17:30 Troponin I 0.01 ng/mL (0.01-0.05) 05/15/18 17:30 Total Protein 6.9 gm/dL (6.0-8.3) 05/17/18 05:47 Albumin 3.3 gm/dL (4.2-5.5) L 05/17/18 05:47 Globulin 3.6 gm/dL 05/17/18 05:47 Albumin/Globulin Ratio 0.9 (1.0-1.8) L 05/17/18 05:47 Amylase 79 U/L (29-103) 05/15/18 17:30 Lipase 27 U/L (11-82) 05/15/18 17:30 Urine Source MIDSTREAM 05/15/18 19:00 Urine Color YELLOW 05/15/18 19:00 Urine Clarity HAZY (CLEAR) 05/15/18 19:00 Urine pH 6.5 (4.6 - 8.0) 05/15/18 19:00 Ur Specific [place] 1.020 (1.005-1.030) 05/15/18 19:00 Urine Protein 30 mg/dL (NEGATIVE) H 05/15/18 19:00 Urine Glucose (UA) NEGATIVE mg/dL (NEGATIVE) 05/15/18 19:00 Urine Ketones NEGATIVE mg/dL (NEGATIVE) 05/15/18 19:00 Urine Blood LARGE (NEGATIVE) H 05/15/18 19:00 Urine Nitrate POSITIVE (NEGATIVE) H 05/15/18 19:00 Urine Bilirubin NEGATIVE (NEGATIVE) 05/15/18 19:00 Urine Urobilinogen 1.0 E.U./dL (0.2 - 1.0) 05/15/18 19:00 Ur Leukocyte Esterase MODERATE (NEGATIVE) H 05/15/18 19:00 Urine RBC >100 /hpf (0-5) H 05/15/18 19:00 Urine WBC 10-25 /hpf (0-5) H 05/15/18 19:00 Ur Epithelial Cells FEW /lpf (FEW) 05/15/18 19:00 Urine Bacteria 4+ /hpf (NONE SEEN) H 05/15/18 19:00 - Physical Exam Vitals and I&O: Vital Signs Temp 96.9 F 05/22/18 16:35 Pulse 58 05/22/18 16:35 Resp 18 05/22/18 16:35 BP 136/78 05/22/18 16:35 Pulse Ox 99 05/22/18 16:35 Intake & Output 05/22/18 05/22/18 05/23/18 06:59 18:59 06:59 Intake Total 150 650 Balance 150 650 Weight (lbs) 94.529 kg 94.574 kg Intake: Intake, IV Amount 50 cefTRIAXone 1 gm In 50 Sodium Chloride 0.9% 50 ml @ 100 mls/hr IV Q24HR [facility] Rx#:[id number] Oral 100 650 Other: # Voids 2 3 # Bowel Movements 0 1 Weight Source Bedscale Bedscale Active Medications: Current Medications Acetaminophen (Tylenol) 650 mg PO Q4HR PRN PRN Reason: Pain Or Fever >100.4 Stop: 07/14/18 23:19 Amlodipine Besylate (Norvasc) 10 mg PO DAILY [facility] Stop: 07/15/18 08:59 Last Admin: 05/22/18 08:59 Dose: Not Given Brimonidine Tartrate (Alphagan 0.15% Ophth Soln) 1 drop EACH EYE BID JAHAIRA Stop: 07/14/18 23:29 Last Admin: 05/22/18 17:10 Dose: 1 drop Ceftriaxone Sodium 1 gm/ (Sodium Chloride) 50 mls @ 100 mls/hr IV Q24HR JAHAIRA Stop: 07/15/18 20:59 Last Infusion: 05/21/18 23:30 Dose: Infused Lactobacillus Rhamnosus (Culturelle 15b) 1 each PO DAILY JAHAIRA Stop: 07/17/18 08:59 Last Admin: 05/22/18 08:55 Dose: 1 each Metoprolol Succinate (Toprol Xl) 25 mg PO DAILY [facility] Stop: 07/15/18 08:59 Last Admin: 05/22/18 09:00 Dose: Not Given Miscellaneous (Probiotic Screen) 1 ea MC PRN PRN PRN Reason: PROTOCOL Stop: 07/16/18 12:13 Promethazine HCl (Phenergan) 12.5 mg PO Q4H PRN PRN Reason: Cough Stop: 07/14/18 23:19 Last Admin: 05/18/18 21:28 Dose: 12.5 mg Tamsulosin HCl (Flomax) 0.4 mg PO HS [facility] Stop: 07/15/18 20:59 Last Admin: 05/21/18 21:22 Dose: 0.4 mg General: no acute distress, well developed, well nourished HEENT: atraumatic, normocephalic, PERRLA, EOMI Neck: supple, no thyromegaly Cardiovascular: S1S2, regular Lungs: clear to auscultation bilaterally, clear to percussion Abdomen: soft, no tender, no distended Extremities: no cyanosis, no clubbing, no edema Neurological: awake, alert Infectious Disease Assmt/Plan - Assessment Assessment: 1. Staph hemolyticus bacteremia. 2. UTI. 3. Dementia, 4. HTN. 5. CVA and left sided weakness. - Plan Plan: Continue the same treatment. Continue rocephin 1 gm IV Daily for 10 days. May be discharged from ID point of view. DW Dr Martinez./ Nutritional Asmnt/Malnutr-PDOC - Dietary Evaluation Malnutrition Findings (Please click <Entered> for more info): Nutritional Asmnt/Malnutrition Start: 05/16/18 16: 16 Text: Status: Complete Freq: Protocol: Document 05/16/18 16:16 LCHENG (Rec: 05/16/18 16:30 [email or web address] [email or web address]) Nutritional Asmnt/Malnutrition Patient General Information Nutritional Screening High Risk Consult Diagnosis sepsis, UTI Pertinent Medical Hx/Surgical Hx HTN, dyslipidemia Subjective Information Consult received for charlee 11 , sacral wound. Pt seen sleeping in bed at time of visit. RN stated pt is a feeder, consumed 50% of breakfast and lunch today. Current Diet Order/ Nutrition Support pureed Pertinent Medications reviewed Pertinent Labs 05/15 Na 135, glucose 102, alb 3.4 Nutritional Hx/Data Height 1.7 m Height (Calculated Centimeters) 170.2 Current Weight (lbs) 77.111 kg Weight (Calculated Kilograms) 77.1 Weight (Calculated Grams) 93710.7 [place] Body Weight 148 Body Mass Index (BMI) 26.6 Weight Status Overweight GI Symptoms GI Symptoms None Last BM not indicated Difficult in: None Skin Integrity/Comment: brakon skin to left sacral per wound care note Current %PO Fair (50-74%) Estimated Nutritional Goals BEE in Kcals: Using Current wt Calories/Kcals/Kg 27-32 Kcals Calculated 6051-8275 Protein: Using Current wt Protein g/k-1.2 Protein Calculated 77-92 Fluid: ml 2079-2464ml (1ml/kcal) Nutritional Problem 1. Problem Problem increased nutrition needs Etiology increased metabilic demand for wound healing Signs/Symptoms: broken skin on left sacral Malnutrition Alert Is there a minimum of two criteria No selected? Query Text:Check all the applicable criteria. A minimum of two criteria are recommended for diagnosis of either severe or non-severe malnutrition. Malnutrition Related to Morbid Obesity Malnutrition related to morbid obesity No Intervention/Recommendation Comments 1. Continue with pureed diet as ordered. Assist pt with all meals. Consider adding nutrition supplement if PO continue <=50%. 2. Monitor PO intake, wt, labs and skin integrity 3. F/U as high risk in 2-3 day Expected Outcomes/Goals Expected Outcomes/Goals 1. PO intake to meet at least 75% of nutritional needs. 2. Wt stability, skin integrity to improve, labs to approach WNL.
[2018-05-22] MEDS: cefTRIAXone 1 GM in Sodium Chloride 0.9% 50 ML IV SCH (20:15)
--- NOTE | 2018-06-04 09:55 | Discharge Summary ---
DATE OF DISCHARGE: 05/22/2018 FINAL DIAGNOSES: 1. Urinary tract infection. 2. Staph bacteremia. 3. Chronic heart failure. 4. Chronic AFib. 5. Hypertension. 6. Dysphagia. 7. Right hip fracture. 8. Medical management. HOSPITAL COURSE: This is an 87-year-old male who was admitted for evaluation of the increasing confusion, weakness, lethargy diagnosed with UTI, started on antibiotics. Blood culture came back positive for staph bacteremia. ID evaluated the patient. Repeat blood cultures came back negative. patient's mental status was improving. After clinical improvement, the patient was cleared for discharge back to [facility] with 7 more days of IV antibiotics per ID recommendations DISCHARGE CONDITION: Stable. DISCHARGE MEDICATIONS: Please see medication reconciliation. JOB# [id number] [id number]
== END 2018-05-22 20:50 | DRG 689 ==
LOC: ER 16:25 → MSI 22:24 → TELE 23:53
PROVIDERS: ADMIT Family Medicine; ATTEND Family Medicine
DX: N39.0 Urinary tract infection, site not specified (principal); R53.2 Functional quadriplegia; I69.954 Hemiplegia and hemiparesis following unspecified cerebrovascular disease affecting left non-dominant side; E87.1 Hypo-osmolality and hyponatremia; E87.2 Acidosis; R13.10 Dysphagia, unspecified; I50.9 Heart failure, unspecified; Z66 Do not resuscitate; I48.91 Unspecified atrial fibrillation; F03.90 Unspecified dementia, unspecified severity, without behavioral disturbance, psychotic disturbance, mood disturbance, and anxiety; I11.0 Hypertensive heart disease with heart failure; N40.0 Benign prostatic hyperplasia without lower urinary tract symptoms; E78.5 Hyperlipidemia, unspecified; B95.8 Unspecified staphylococcus as the cause of diseases classified elsewhere; D64.9 Anemia, unspecified; E86.0 Dehydration; Z82.49 Family history of ischemic heart disease and other diseases of the circulatory system
CPT/HCPCS: 36415-UA; 71045-TC; 80048-TC; 80053-TC; 81001-TC; 82150-TC; 82550-TC; 83605; 83690-TC; 84484-TC; 85025-TC; 85610-TC; 85730-TC; 87086-90; 93005; 94760; J0696; J7030; J7040; Z7610